=== PATIENT | female | born 1960 | race American Indian/Alaskan Native ===

== ENCOUNTER 2018-11-30 15:07 | Inpatient (IN) | payer MEDICARE ==
--- NOTE | 2018-11-30 16:08 | Cat Scan Report ---
PROCEDURE: CT HEAD/BRAIN WO CON TECHNIQUE: Computerized tomography of the head was performed without contrast material. CT DOSE LENGTH PRODUCT: 928.6 mGycm HISTORY: neuro deficits <6hrs or sx present upon awakening COMPARISONS: None . FINDINGS: Unenhanced CT of the brain was performed and demonstrates no acute intracranial hemorrhage, extra-axial fluid collection, midline shift or mass effect. The ventricles and basal cisterns are no t effaced. The mastoid air cells and middle ears appear clear. There is no evidence of acute sinusitis. IMPRESSION: No acute intracranial hemorrhage. This document is electronically signed by Rc Almaraz MD., Nov 30 2018 04:06:34 PM ET
--- NOTE | 2018-11-30 16:21 | Cat Scan Report ---
PROCEDURE: CT CERVICAL SPINE WO CON TECHNIQUE: CT of the cervical spine performed. Axial images and coronal and sagittal reformatted imag es were obtained. HISTORY: poss. CVA/found on floor/fall COMPARISON: None FINDINGS: There is no acute fracture identified. Vertebral body heights and alignment are maintained. There is C5-6 vertebral fusion, likely congenital. There is C4-5 prominent disc space narrowing with endplate spurring. There is C6-7 mild disc space na rrowing and moderate endplate spurring. There is multilevel moderate facet arthropathy, right worse t fontenot left. There is a C2-3 posterior disc bulge causing minimal central spinal stenosis. IMPRESSION: There is no acute cervical spine fracture or posttraumatic subluxation seen. Degenerative findings. This document is electronically signed by Najma Wolfe MD., Nov 30 2018 04:19:26 PM ET
--- NOTE | 2018-11-30 16:25 | Emergency Department Report ---
ED Neuro Deficit HPI - General Chief Complaint: Neuro Symptoms/Deficit Stated Complaint: SYNCOPE Time Seen by Provider: 11/30/18 16:12 Source: patient, EMS Mode of arrival: Stretcher Limitations: No Limitations - History of Present Illness Initial Comments: Patient is 58 years old female with history of hypertension and diabetes. Patient brought to the emergency room accompanied by her niece. [place] stated that she received a call from a family friend stating that he was talking to the patient at 2:00 this afternoon and all of a sudden R speech became slurred and he is unable to understand what she was saying and then she passed out. Currently patient is alert oriented 3 Oneill scale is 0. Patient stated that she had a similar episode one month ago and for which she lost some of her vision right eye. Patient stated that she followed up with her primary care physician who refer her to ophthalmology. -: Sudden Location: speech Presenting Symptoms: Present: Altered Mental Status Place: home Associated Symptoms: denies other symptoms - Related Data Home Medications: Home Medications Medication Instructions Recorded Confirmed Last Taken Acetaminophen mcg INHALATION BID 05/30/15 06/13/15 05/29/15 Advair Diskus 250-50 mcg 250 mg INHALATION DAILY 05/30/15 06/13/15 06/12/15 Albuterol Sulfate 2.5 mg INHALATION DAILY 05/30/15 06/13/15 06/12/15 Aspirin Enteric Coated TAB 81 mg PO DAILY 05/30/15 06/13/15 06/06/15 AtorvaSTATin 20 mg PO DAILY 05/30/15 06/13/15 06/12/15 Baclofen 10 mg PO BID 05/30/15 06/13/15 06/12/15 Carvedilol [Coreg] 25 mg PO BID 05/30/15 06/13/15 06/13/15 Cyclobenzaprine 10 mg PO QHS 05/30/15 06/13/15 06/12/15 Diclofenac Sodium 75 mg PO DAILY 05/30/15 06/13/15 06/12/15 Fiorinal with Codeine #3 Cap 50 mg PO Q4H 05/30/15 06/13/15 06/12/15 Fluticasone 50 mcg INNOSTRIL DAILY 05/30/15 06/13/15 06/12/15 Gabapentin 300 mg PO DAILY 05/30/15 06/13/15 06/12/15 HYDROcodone/APAP 5-325 5 - 325 mg PO PRN 05/30/15 06/13/15 06/12/15 ISOSORBIDE MONOnitrate 30 mg PO DAILY 05/30/15 06/13/15 06/12/15 Loratadine 10 mg PO DAILY 05/30/15 06/13/15 06/12/15 Losartan/Hydrochlorothiazide 100 mg PO DAILY 05/30/15 06/13/15 06/12/15 Metoclopramide 5 mg PO DAILY 05/30/15 06/13/15 06/12/15 Nitro Dur 0.4 mg SL PRN 05/30/15 06/13/15 05/30/15 Omeprazole 20 mg PO DAILY 05/30/15 06/13/15 06/12/15 Pantoprazole 40 mg PO DAILY 05/30/15 06/13/15 06/12/15 Prednisone 25 mg PO BID 05/30/15 06/13/15 06/12/15 ProAir HFA Inhaler 2 puff INHALATION BID 05/30/15 06/13/15 06/10/15 Sertraline 100 mg PO DAILY 05/30/15 06/13/15 06/12/15 Vitamin D3 2,000 unit PO DAILY 05/30/15 06/13/15 06/12/15 cloNIDine 0.1 mg PO QHS 05/30/15 06/13/15 06/13/15 hydrALAZINE 50 mg PO BID 05/30/15 06/13/15 06/12/15 metFORMIN 100 mg PO BID 05/30/15 06/13/15 06/12/15 sulfaSALAzine 500 mg PO DAILY 05/30/15 06/13/15 06/12/15 traMADol 50 mg PO TID PRN 05/30/15 06/13/15 06/12/15 Previous Rx's Medication Instructions Recorded Last Taken Type oxyCODONE /ACETAMINOPHEN [Percocet 1 tab PO Q6HR PRN #20 tablet 09/23/15 Unknown Rx 5/325] Allergies/Adverse Reactions: Allergies Allergy/AdvReac Type Severity Reaction Status Date / Time No Known Allergies Allergy Verified 09/23/15 18:43 ED Review of Systems ROS: Stated complaint: SYNCOPE Other details as noted in HPI Comment: All other systems reviewed and negative Constitutional: denies: chills, fever Respiratory: denies: cough, orthopnea, shortness of breath, SOB with exertion, SOB at rest, wheezing Cardiovascular: denies: chest pain, palpitations Gastrointestinal: denies: abdominal pain, nausea, vomiting Musculoskeletal: denies: back pain Neurological: denies: headache, weakness, numbness, paresthesias, confusion ED Past Medical Hx - Past Medical History Previous Medical History?: Yes Hx Hypertension: Yes (10+ YRS, high cholesterol) Hx Diabetes: Yes ((NIDDM '13)) Hx GERD: Yes Hx Renal Disease: Yes (stage 2) Hx Arthritis: Yes Hx Asthma: Yes Additional medical history: GOUT. HERNIATED ESOPHAGUS. FIBROMYALGIA - Surgical History Past Surgical History?: No - Social History Smoking Status: Unknown if ever smoked Substance Use Type: None - Medications Home Medications: Home Medications Medication Instructions Recorded Confirmed Last Taken Type Acetaminophen mcg INHALATION BID 05/30/15 06/13/15 05/29/15 History Advair Diskus 250-50 mcg 250 mg INHALATION DAILY 05/30/15 06/13/15 06/12/15 History Albuterol Sulfate 2.5 mg INHALATION DAILY 05/30/15 06/13/15 06/12/15 History Aspirin Enteric Coated TAB 81 mg PO DAILY 05/30/15 06/13/15 06/06/15 History AtorvaSTATin 20 mg PO DAILY 05/30/15 06/13/15 06/12/15 History Baclofen 10 mg PO BID 05/30/15 06/13/15 06/12/15 History Carvedilol [Coreg] 25 mg PO BID 05/30/15 06/13/15 06/13/15 History Cyclobenzaprine 10 mg PO QHS 05/30/15 06/13/15 06/12/15 History Diclofenac Sodium 75 mg PO DAILY 05/30/15 06/13/15 06/12/15 History Fiorinal with Codeine #3 Cap 50 mg PO Q4H 05/30/15 06/13/15 06/12/15 History Fluticasone 50 mcg INNOSTRIL DAILY 05/30/15 06/13/15 06/12/15 History Gabapentin 300 mg PO DAILY 05/30/15 06/13/15 06/12/15 History HYDROcodone/APAP 5-325 5 - 325 mg PO PRN 05/30/15 06/13/15 06/12/15 History ISOSORBIDE MONOnitrate 30 mg PO DAILY 05/30/15 06/13/15 06/12/15 History Loratadine 10 mg PO DAILY 05/30/15 06/13/15 06/12/15 History Losartan/Hydrochlorothiazide 100 mg PO DAILY 05/30/15 06/13/15 06/12/15 History Metoclopramide 5 mg PO DAILY 05/30/15 06/13/15 06/12/15 History Nitro Dur 0.4 mg SL PRN 05/30/15 06/13/15 05/30/15 History Omeprazole 20 mg PO DAILY 05/30/15 06/13/15 06/12/15 History Pantoprazole 40 mg PO DAILY 05/30/15 06/13/15 06/12/15 History Prednisone 25 mg PO BID 05/30/15 06/13/15 06/12/15 History ProAir HFA Inhaler 2 puff INHALATION BID 05/30/15 06/13/15 06/10/15 History Sertraline 100 mg PO DAILY 05/30/15 06/13/15 06/12/15 History Vitamin D3 2,000 unit PO DAILY 05/30/15 06/13/15 06/12/15 History cloNIDine 0.1 mg PO QHS 05/30/15 06/13/15 06/13/15 History hydrALAZINE 50 mg PO BID 05/30/15 06/13/15 06/12/15 History metFORMIN 100 mg PO BID 05/30/15 06/13/15 06/12/15 History sulfaSALAzine 500 mg PO DAILY 05/30/15 06/13/15 06/12/15 History traMADol 50 mg PO TID PRN 05/30/15 06/13/15 06/12/15 History oxyCODONE /ACETAMINOPHEN [Percocet 1 tab PO Q6HR PRN #20 tablet 09/23/15 Unknown Rx 5/325] ED Neuro Physical Exam - General Limitations: No Limitations General appearance: alert, in no apparent distress Suspected Stroke: Yes - Head Head exam: Present: atraumatic, normocephalic, normal inspection - Eye Eye exam: Present: normal appearance, PERRL - ENT ENT exam: Present: normal exam, normal orophraynx, mucous membranes moist - Neck Neck exam: Present: normal inspection, full ROM. Absent: tenderness, meningismus, lymphadenopathy, thyromegaly - Respiratory Respiratory exam: Present: normal lung sounds bilaterally - Cardiovascular Cardiovascular Exam: Present: regular rate, normal rhythm, normal heart sounds - GI/Abdominal GI/Abdominal exam: Present: soft, normal bowel sounds. Absent: distended, tenderness, guarding, rebound, rigid, organomegaly, mass, bruit, pulsatile mass, hernia - Extremities Exam Extremities exam: Present: normal inspection, full ROM, normal capillary refill. Absent: tenderness, pedal edema, joint swelling, calf tenderness - Back Exam Back exam: Present: normal inspection, full ROM - Neurological Exam Neurological exam: Present: alert, oriented X3, CN II-XII intact, normal gait - NIHSS Assessment Interval: Baseline 1a. Level of Consciousness: alert/keenly responsive 1b. LOC Questions: answers both correctly 1c. LOC Commands: performs tasks correctly 2. Best Gaze: normal 3. Visual: partial hemianopia 4. Facial Palsy: normal symmetrical movement 5b. Motor Arm Right: no drift 5a. Motor Arm Left: no drift 6a. Motor Leg Left: no drift 6b. Motor Leg Right: no drift 7. Limb Ataxia: absent 8. Sensory: normal 9. Best Language: no aphasia 10. Dysarthria: normal 11. Extinction/Inattention: no abnormality Total Score: 1 Stroke Severity: Minor Stroke - Psychiatric Psychiatric exam: Present: normal mood - Skin Skin exam: Present: warm, normal color ED Course Vital Signs 11/30/18 11/30/18 11/30/18 15:21 16:12 16:40 Temperature 98.6 F 98.6 F Pulse Rate 90 72 73 Respiratory 18 18 11 L Rate Blood Pressure 188/110 Blood Pressure 207/100 [Left] O2 Sat by Pulse 97 98 100 Oximetry 11/30/18 16:43 Temperature Pulse Rate Respiratory 14 Rate Blood Pressure Blood Pressure [Left] O2 Sat by Pulse Oximetry - Lab Data Result diagrams: 11/30/18 16:38 11/30/18 16:38 Lab Results 11/30/18 11/30/18 11/30/18 Range/Units 16:38 16:38 16:38 WBC 7.1 (4.5-11.0) K/mm3 RBC 4.13 (3.65-5.03) M/mm3 Hgb 12.5 (10.1-14.3) gm/dl Hct 37.5 (30.3-42.9) % MCV 91 (79-97) fl MCH 30 (28-32) pg MCHC 33 (30-34) % RDW 13.4 (13.2-15.2) % Plt Count 236 (140-440) K/mm3 Lymph % (Auto) 41.3 H (13.4-35.0) % [place] % (Auto) 7.8 H (0.0-7.3) % Eos % (Auto) 0.8 (0.0-4.3) % Baso % (Auto) 1.2 (0.0-1.8) % Lymph # 2.9 (1.2-5.4) K/mm3 [place] # 0.6 (0.0-0.8) K/mm3 Eos # 0.1 (0.0-0.4) K/mm3 Baso # 0.1 (0.0-0.1) K/mm3 Seg Neutrophils % 48.9 (40.0-70.0) % Seg Neutrophils # 3.5 (1.8-7.7) K/mm3 PT 13.8 (12.2-14.9) Sec. INR 1.00 (0.87-1.13) APTT 26.8 (24.2-36.6) Sec. Sodium 141 (137-145) mmol/L Potassium 3.7 (3.6-5.0) mmol/L Chloride 98.5 (98-107) mmol/L Carbon Dioxide 28 (22-30) mmol/L Anion Gap 18 mmol/L BUN 13 (7-17) mg/dL Creatinine 0.8 (0.7-1.2) mg/dL Estimated GFR > 60 ml/min BUN/Creatinine Ratio 16 % Glucose 144 H (65-100) mg/dL Calcium 10.2 (8.4-10.2) mg/dL Troponin T < 0.010 (0.00-0.029) ng/mL - EKG Data -: EKG Interpreted by Wy EKG shows normal: sinus rhythm Rate: normal Interpretation: no acute changes - Radiology Data Radiology results: report reviewed CT brain is negative for acute finding CT cervical spine is negative for acute finding. - Medical Decision Making Patient is 58 years old female with history of hypertension and diabetes. Patient brought to the emergency room accompanied by her niece. [place] stated that she received a call from a family friend stating that he was talking to the patient at 2:00 this afternoon and all of a sudden R speech became slurred and he is unable to understand what she was saying and then she passed out. Currently patient is alert oriented 3 Oneill scale is 0. Patient stated that she had a similar episode one month ago and for which she lost some of her vision right eye. Patient stated that she followed up with her primary care physician who refer her to ophthalmology. I discussed the patient with Dr Lugo, he agreed to admit for further management. Critical care attestation.: If time is entered above; I have spent that time in minutes in the direct care of this critically ill patient, excluding procedure time. ED Disposition Clinical Impression: TIA (transient ischemic attack) Disposition: OP ADMIT IP TO THIS HOSP Is pt being admited?: Yes Condition: Stable
[2018-11-30 17:18] LABS: Basophils # (Auto) 0.1 K/mm3 (0.0-0.1); Basophils % (Auto) 1.2 % (0.0-1.8); Eosinophils # (Auto) 0.1 K/mm3 (0.0-0.4); Eosinophils % (Auto) 0.8 % (0.0-4.3); Hematocrit 37.5 % (30.3-42.9); Hemoglobin 12.5 gm/dl (10.1-14.3); Lymphocytes # (Auto) 2.9 K/mm3 (1.2-5.4); Lymphocytes % (Auto) 41.3 % (13.4-35.0); Mean Corpuscular HGB Conc 33 % (30-34); Mean Corpuscular Volume 91 fl (79-97); Monocytes # (Auto) 0.6 K/mm3 (0.0-0.8); Monocytes % (Auto) 7.8 % (0.0-7.3); Platelet Count 236 K/mm3 (140-440); Red Blood Count 4.13 M/mm3 (3.65-5.03); Red Cell Distribution Width 13.4 % (13.2-15.2)
[2018-11-30 17:35] LABS: BUN/Creatinine Ratio 16; Blood Urea Nitrogen 13 mg/dL (7-17); Calcium 10.2 mg/dL (8.4-10.2); Hemolysis Index 3
[2018-11-30 17:39] LABS: Partial Thromboplastin Time 26.8 Sec. (24.2-36.6)
[2018-11-30] MEDS ORDERED: APRESOLINE IV ONE (19:02)
[2018-11-30] MEDS ORDERED: ZOFRAN IV ONE (19:50)
[2018-11-30] MEDS ORDERED: ZOFRAN ONE (19:52)
--- NOTE | 2018-11-30 21:29 | History and Physical Report ---
History of Present Illness Chief complaint: My speech is slurred History of present illness: 58 YO Female with HTN, DM, Obesity, GERD, OA, Asthma, Gout, Fibromyalgia presents to ED for evaluation. Pt states that she experienced a sudden onset of slurred speech, and confusion while on the telephone talking to a friend around 1400 hrs. Pt stats that she subsequently became confused and then lost consciousness and awoke lying on the floor. . Pt reports have a similar episode approximately 1 month ago during that episode- the patient reports vision loss in the right eye. EMS notified, and upon arrival the patient was found to have a neurologic deficit. A code stroke was called, and the patient transported to [facility]. Pt seen and evaluated in ED and found to have symptoms consistent with CVA. Pt admitted to telemtry and initiated on CVA protocol. No prior admission for review. All listed medication reconciled at time of admissions. Pt denies fever, chills, CP, Palpitations, NVD, Trauma, BRBPR, Loss of bowel/bladder continence, productive cough, or recent ill contacts. Neurology consulted in ED. Pt is outside therapeutic window for TPA at time of my exam. Past History Past Medical History: arthritis, diabetes, hypertension, other (gout, Fibromyalgia,) Past Surgical History: No surgical history (reviewed) Social history: single. denies: smoking, alcohol abuse, IV drug use, full code Family history: diabetes, hypertension Medications and Allergies Allergies Allergy/AdvReac Type Severity Reaction Status Date / Time No Known Allergies Allergy Verified 09/23/15 18:43 Home Medications Medication Instructions Recorded Confirmed Last Taken Type Advair Diskus 250-50 mcg 250 mg INHALATION BID 05/30/15 11/30/18 06/12/15 History Aspirin Enteric Coated TAB 81 mg PO DAILY 05/30/15 11/30/18 06/06/15 History AtorvaSTATin 20 mg PO DAILY 05/30/15 11/30/18 06/12/15 History Cyclobenzaprine 10 mg PO QHS 05/30/15 11/30/18 06/12/15 History Fiorinal with Codeine #3 Cap 50 mg PO Q4H 05/30/15 11/30/18 2 Days Ago History ~11/28/18 Fluticasone 50 mcg INNOSTRIL DAILY 05/30/15 11/30/18 06/12/15 History Loratadine 10 mg PO DAILY 05/30/15 11/30/18 1 Day Ago History ~11/29/18 Nitro Dur 0.4 mg SL PRN 05/30/15 11/30/18 1 Month Ago History ~10/31/18 Pantoprazole 40 mg PO DAILY 05/30/15 11/30/18 06/12/15 History Prednisone 25 mg PO BID 05/30/15 11/30/18 1 Day Ago History ~11/29/18 ProAir HFA Inhaler 2 puff INHALATION BID 05/30/15 11/30/18 1 Day Ago History ~11/29/18 Sertraline 100 mg PO DAILY 05/30/15 11/30/18 2 Days Ago History ~11/28/18 Vitamin D3 2,000 unit PO DAILY 05/30/15 11/30/18 2 Days Ago History ~11/28/18 metFORMIN 750 mg PO QDAY 05/30/15 11/30/18 1 Day Ago History ~11/29/18 Atenolol [Tenormin] 50 mg PO QDAY 11/30/18 11/30/18 1 Day Ago History ~11/29/18 HYDROcodone/APAP 5-325 [[place] 1 each PO Q6HR PRN 11/30/18 11/30/18 1 Day Ago History 5-325 mg TAB] ~11/29/18 Lisinopril/Hydrochlorothiazide 2 each PO QDAY 11/30/18 11/30/18 1 Day Ago History [Zestoretic 10-12.5 mg Tablet] ~11/29/18 cloNIDine [Catapres] 0.2 mg PO BID #60 tablet 12/02/18 Unknown Rx Review of Systems Constitutional: no weight loss, no weight gain, no fever, no sweats Ears, nose, mouth and throat: no deferred, no ear pain, no tinnitis, no nasal congestion, no sinus pressure Breasts: no change in shape, no swelling, no mass Cardiovascular: no orthopnea, no rapid/irregular heart beat, no lightheadedness Respiratory: no cough, no cough with sputum, no excessive sputum Gastrointestinal: no nausea, no vomiting, no diarrhea, no constipation, no change in bowel habits, no coffee ground emesis Genitourinary Female: no dysmenorrhea, no flank pain, no menorrhagia, no urgency Rectal: no pain, no incontinence, no bleeding Musculoskeletal: no neck stiffness, no neck pain, no shooting arm pain, no low back pain Integumentary: no rash, no jaundice, no boils Neurological: weakness, syncope, change in speech, motor disturbance, no numbness, no seizures Psychiatric: no anxiety, no sleep disturbances, no insomnia, no change in appetite Endocrine: no cold intolerance, no heat intolerance, no excessive thirst, no polydipsia, no polyuria, no excessive sweating Hematologic/Lymphatic: no easy bruising, no easy bleeding, no lymphadenopathy Allergic/Immunologic: no urticaria, no anaphylaxis Exam - Constitutional Vitals: Temp Pulse Resp BP Pulse Ox 98 F 81 10 L 150/82 100 11/30/18 19:26 11/30/18 19:45 11/30/18 19:45 11/30/18 20:30 11/30/18 20:30 General appearance: Present: mild distress - EENT Eyes: Present: PERRL ENT: hearing intact, clear oral mucosa - Neck Neck: Present: supple, normal ROM - Respiratory Respiratory effort: normal Respiratory: bilateral: CTA - Cardiovascular Heart Sounds: Present: S1 & S2. Absent: rub, click - Extremities Extremities: pulses symmetrical, No edema Peripheral Pulses: within normal limits - Abdominal General gastrointestinal: Present: soft, non-tender, non-distended, normal bowel sounds Female genitourinary: Present: normal - Integumentary Integumentary: Present: clear, warm, dry - Musculoskeletal Musculoskeletal: gait normal, strength equal bilaterally - Psychiatric Psychiatric: appropriate mood/affect, intact judgment & insight - Neurologic Neurologic: CNII-XII intact, moves all extremities Results - Labs CBC & Chem 7: 11/30/18 16:38 11/30/18 16:38 Labs: Abnormal lab results 11/30/18 11/30/18 Range/Units 16:38 16:38 Lymph % (Auto) 41.3 H (13.4-35.0) % [place] % (Auto) 7.8 H (0.0-7.3) % Glucose 144 H (65-100) mg/dL Assessment and Plan - Patient Problems (1) CVA (cerebral vascular accident) Status: Acute Qualifiers: Laterality of affected vessel: unspecified Plan to address problem: CVA Protocol: Admit to telemetry, Echo, CT head, MRI Brain, MRA Brain, Antiplatelet therapy, Lipid panel, neuro check, seizure precautions. Statin therapy, PT/OT/Speech Therapy (2) HTN (hypertension) Status: Acute Qualifiers: Hypertension type: essential hypertension Qualified Code(s): I10 - Essential (primary) hypertension Plan to address problem: monitor bp q shift, permissive hypertension overnigh, continue medical management. (3) Diabetes Status: Acute Plan to address problem: ADA diet, insulin sliding scale, accu check, hypoglycemia protocol (4) GERD (gastroesophageal reflux disease) Status: Acute Qualifiers: Esophagitis presence: without esophagitis Qualified Code(s): K21.9 - Gastro-esophageal reflux disease without esophagitis Plan to address problem: PPI therapy, (5) DVT prophylaxis Status: Acute Plan to address problem: SCD to BLE while in bed,
[2018-11-30] MEDS ORDERED: ZOFRAN IV PRN (21:30)
[2018-11-30] MEDS ORDERED: TYLENOL PO PRN (21:30)
[2018-11-30] MEDS ORDERED: REGLAN PO PRN (21:30)
[2018-11-30] MEDS ORDERED: DULCOLAX PR PRN (21:30)
[2018-11-30] MEDS ORDERED: MILK OF MAGNESIA PO PRN (21:30)
[2018-11-30] MEDS ORDERED: SODIUM CHLORIDE FLUSH SYRINGE 10 ML IV PRN (21:30)
[2018-11-30] MEDS ORDERED: PHENERGAN PR PRN (21:30)
[2018-11-30] MEDS ORDERED: APRESOLINE IV PRN (21:32)
[2018-11-30] MEDS: NORCO 5/325 PO PRN (23:25)
[2018-12-01 05:49] LABS: Chol/HDL Ratio 3.48 %
--- NOTE | 2018-12-01 08:29 | Progress Note ---
Subjective Date of service: 12/01/18 Interval history: patient admitted through the ED on multiple meds that can produce sedation and slurred speech actually suspect hypertensive crisis plan MRI and EEG the CT was reviewed by me and is normal Objective - Vital Sign Vital Signs - 12hr 11/30/18 11/30/18 11/30/18 20:30 20:45 21:00 Temperature Pulse Rate 78 75 Respiratory 13 11 L Rate Blood Pressure 150/82 150/82 173/84 O2 Sat by Pulse 100 100 100 Oximetry 11/30/18 11/30/18 11/30/18 21:30 21:51 22:01 Temperature Pulse Rate 80 97 H 85 Respiratory 14 12 Rate Blood Pressure 161/82 161/82 161/82 O2 Sat by Pulse 99 99 99 Oximetry 11/30/18 11/30/18 11/30/18 22:11 22:24 22:27 Temperature 98.5 F Pulse Rate 83 96 H 86 Respiratory 11 L 18 Rate Blood Pressure 161/82 151/89 O2 Sat by Pulse 100 97 Oximetry 12/01/18 03:21 Temperature 98.0 F Pulse Rate 76 Respiratory 16 Rate Blood Pressure 160/90 O2 Sat by Pulse 99 Oximetry - Laboratory Findings CBC and BMP: 11/30/18 16:38 11/30/18 16:38 Abnormal Lab Findings: Abnormal Labs 11/30/18 11/30/18 16:38 16:38 Lymph % (Auto) 41.3 H [place] % (Auto) 7.8 H Glucose 144 H
[2018-12-01] MEDS ORDERED: ATIVAN IV NR (08:30)
--- NOTE | 2018-12-01 08:30 | Progress Note ---
Assessment and Plan Assessment and plan: --Acute CVA ; not a candidate for TPA Aspirin statin. Neuro checks Neuro workup with MRI brain MRA and carotid Doppler PTOT ST, rehabilitation Follow due to workup, neurology evaluation --Hypertension; moderate controlled Continue current antihypertensives, permissive hypertension per protocol Closely monitor --Type 2 diabetes mellitus; Accu-Chek sliding scale coverage and ADA diet Insulin as needed --Gastroesophageal reflux disease; Protonix --Dyslipidemia; statin and low cholesterol diet --DVT prophylaxis; Lovenox Monitor closely and adjust management as needed Neurology evaluation recommendations noted Possible discharge in 1-2 days if stable History Interval history: Patient seen and examined medical records reviewed Patient feels slightly better no new complaints Neuro workup is in progress Vital signs noted Hospitalist Physical - Constitutional Vitals: Temp Pulse Resp BP Pulse Ox 98.0 F 76 16 160/90 99 12/01/18 03:21 12/01/18 03:21 12/01/18 03:21 12/01/18 03:21 12/01/18 03:21 General appearance: Present: no acute distress, well-nourished - EENT Eyes: Present: PERRL, EOM intact - Neck Neck: Present: supple, normal ROM - Respiratory Respiratory effort: normal Respiratory: bilateral: diminished, negative: rales, rhonchi, wheezing - Cardiovascular Rhythm: regular Heart Sounds: Present: S1 & S2 - Extremities Extremities: no ischemia, No edema - Abdominal General gastrointestinal: soft, non-tender, non-distended, normal bowel sounds - Integumentary Integumentary: Present: clear, warm - Psychiatric Psychiatric: appropriate mood/affect, cooperative - Neurologic Neurologic: CNII-XII intact, moves all extremities Results - Labs CBC & Chem 7: 11/30/18 16:38 11/30/18 16:38 Labs: Laboratory Last Values WBC 7.1 K/mm3 (4.5-11.0) 11/30/18 16:38 RBC 4.13 M/mm3 (3.65-5.03) 11/30/18 16:38 Hgb 12.5 gm/dl (10.1-14.3) 11/30/18 16:38 Hct 37.5 % (30.3-42.9) 11/30/18 16:38 MCV 91 fl (79-97) 11/30/18 16:38 MCH 30 pg (28-32) 11/30/18 16:38 MCHC 33 % (30-34) 11/30/18 16:38 RDW 13.4 % (13.2-15.2) 11/30/18 16:38 Plt Count 236 K/mm3 (140-440) 11/30/18 16:38 Lymph % (Auto) 41.3 % (13.4-35.0) H 11/30/18 16:38 Crisp % (Auto) 7.8 % (0.0-7.3) H 11/30/18 16:38 Eos % (Auto) 0.8 % (0.0-4.3) 11/30/18 16:38 Baso % (Auto) 1.2 % (0.0-1.8) 11/30/18 16:38 Lymph # 2.9 K/mm3 (1.2-5.4) 11/30/18 16:38 Crisp # 0.6 K/mm3 (0.0-0.8) 11/30/18 16:38 Eos # 0.1 K/mm3 (0.0-0.4) 11/30/18 16:38 Baso # 0.1 K/mm3 (0.0-0.1) 11/30/18 16:38 Seg Neutrophils % 48.9 % (40.0-70.0) 11/30/18 16:38 Seg Neutrophils # 3.5 K/mm3 (1.8-7.7) 11/30/18 16:38 PT 13.8 Sec. (12.2-14.9) 11/30/18 16:38 INR 1.00 (0.87-1.13) 11/30/18 16:38 APTT 26.8 Sec. (24.2-36.6) 11/30/18 16:38 15.3 Sec. (15.1-19.6) 11/30/18 16:38 Sodium 141 mmol/L (137-145) 11/30/18 16:38 Potassium 3.7 mmol/L (3.6-5.0) 11/30/18 16:38 Chloride 98.5 mmol/L (98-107) 11/30/18 16:38 Carbon Dioxide 28 mmol/L (22-30) 11/30/18 16:38 18 mmol/L 05/20/19 16:38 BUN 13 mg/dL (7-17) 11/30/18 16:38 0.8 mg/dL (0.7-1.2) 11/30/18 16:38 Estimated GFR > 60 ml/min 11/30/18 16:38 16 % 11/30/18 16:38 Glucose 144 mg/dL (65-100) H 11/30/18 16:38 Calcium 10.2 mg/dL (8.4-10.2) 11/30/18 16:38 < 0.010 ng/mL (0.00-0.029) 11/30/18 16:38 Triglycerides 130 mg/dL (2-149) 12/01/18 04:47 Cholesterol 143 mg/dL (50-199) 12/01/18 04:47 92 mg/dL (50-130) 12/01/18 04:47 41 mg/dL (40-59) 12/01/18 04:47 3.48 % 12/01/18 04:47 Active Medications - Current Medications Current Medications: Generic Name Dose Route Start Last Admin Trade Name Freq PRN Reason Stop Dose Admin Acetaminophen 650 mg 11/30/18 21:30 Tylenol PO Q4H PRN Pain, Mild (1-3) Acetaminophen/Hydrocodone Bitart 1 each 11/30/18 22:55 11/30/18 23:25 Baird 5/325 PO 1 each Q6H PRN Administration Pain (4-6) Aspirin 81 mg 12/01/18 10:00 Halfprin Ec PO DAILY [facility] Atenolol 50 mg 12/01/18 10:00 Tenormin PO QDAY [facility] Atorvastatin Calcium 20 mg 12/01/18 10:00 Lipitor PO DAILY [facility] Bisacodyl 10 mg 11/30/18 21:30 Dulcolax RI QDAY PRN Constipation Cholecalciferol 2,000 unit 12/01/18 10:00 Vitamin D3 PO DAILY [facility] Enoxaparin Sodium 40 mg 12/01/18 22:00 Lovenox SUB-Q QDAY@2200 [facility] Hydralazine HCl 10 mg 11/30/18 21:32 Apresoline IV Q6HR PRN HTN SBP>185 Hydrochlorothiazide 25 mg 12/01/18 10:00 Hctz PO QDAY REZA Lisinopril 20 mg 12/01/18 10:00 Zestril PO QDAY REZA Lorazepam 2 mg 12/01/18 08:30 Ativan IV ONLINE [employer] NR Lorazepam 2 mg 12/01/18 08:24 Ativan IV 12/01/18 08:25 ONCE ONE Magnesium Hydroxide 30 ml 11/30/18 21:30 Milk Of Magnesia PO Q4H PRN Constipation Metformin HCl 750 mg 12/01/18 08:00 Glucophage PO QDDIAB REZA Metoclopramide HCl 10 mg 11/30/18 21:30 Reglan PO Q6H PRN Nausea And Vomiting Ondansetron HCl 4 mg 11/30/18 21:30 Zofran IV Q8H PRN Nausea And Vomiting Pantoprazole Sodium 40 mg 12/01/18 10:00 Protonix PO DAILY [facility] Promethazine HCl 25 mg 11/30/18 21:30 Phenergan RI Q6H PRN Nausea And Vomiting Sertraline HCl 100 mg 12/01/18 10:00 Zoloft PO DAILY [facility] Sodium Chloride 10 ml 11/30/18 21:30 Sodium Chloride Flush Syringe 10 Ml IV PRN PRN LINE FLUSH
[2018-12-01] MEDS ORDERED: ATIVAN IV ONE (09:00)
[2018-12-01] MEDS: GLUCOPHAGE PO SCH (10:41)
[2018-12-01] MEDS: HALFPRIN EC PO SCH (10:41)
[2018-12-01] MEDS: ZOLOFT PO SCH (10:41)
[2018-12-01] MEDS: HCTZ PO SCH (10:41)
[2018-12-01] MEDS: ZESTRIL PO SCH (10:41)
[2018-12-01] MEDS: VITAMIN D3 PO SCH (10:42)
[2018-12-01] MEDS: PROTONIX PO SCH (10:42)
[2018-12-01] MEDS: TENORMIN PO SCH (11:15)
--- NOTE | 2018-12-01 13:08 | Vascular Lab Report ---
PROCEDURE: VL CAROTID DUPLEX BILAT TECHNIQUE: Carotid ultrasound. Degree of carotid stenosis calculated by indirect methods via the peak systolic velocities of the ICA and CCA and reference with the society of Radiologist and Ultrasound consensus conference radiology 2003. HISTORY: stroke COMPARISONS: None currently available. FINDINGS: Note: Measurement of carotid stenosis is based on flow velocity values that correlate with the [place] Symptomatic Carotid Endarterectomy Trial (NASCET) based stenosis criteria using the internal carotid artery diameter as the denominator for stenosis calculation. RIGHT CCA, ICA, and ECA (cm/s): 122, 119, and 98. Ratio = 0.98. LEFT CCA, ICA, and ECA (cm/s): 126, 151, and 82. Ratio = 1.19. There is plaque in both carotids. Both vertebral arteries demonstrate antegrade flow. Normal spectral rhythm is identified. IMPRESSION: * 50-79% stenosis in the left ICA based on velocity. Lower end of the range based on color Doppler. * 16-49% stenosis in the right proximal ICA. This document is electronically signed by Ambrose Hansen MD., Dec 01 2018 01:06:39 PM ET
--- NOTE | 2018-12-01 14:32 | Magnetic Resonance Report ---
MRI BRAIN WITHOUT CONTRAST: 11/30/18 21:30:00 CLINICAL: Stroke. TECHNIQUE: Axial diffusion, T1, T2, gradient echo T2*, coronal and axial FLAIR and sagittal T1 sequences on a 1.5 Dai magnet. Ativan was administered by a nurse for sedation prior to the examination. FINDINGS: Mild motion on a few sequences. The ventricles and sulci are normal for age. No restricted diffusion. A few bilateral nonspecific multifocal white matter hyperintensities of the frontal lobes on T2 and FLAIR. No mass or mass effect. No hemorrhage, edema or extra-axial collection. Normal pituitary and optic chiasm. The brainstem and cerebellum are normal. Intact vascular flow voids. Normal sinuses. The orbits, and soft tissues are normal. Normal calvarium and skull base. IMPRESSION: Negative study. No evidence of acute/subacute infarct or hemorrhage.
--- NOTE | 2018-12-01 14:36 | Magnetic Resonance Report ---
MRA HEAD WITHOUT CONTRAST: 12/01/18 CLINICAL: Stroke. TECHNIQUE: Axial 3-D [id number] MR angiography of the [place] with review of axial source images. FINDINGS: Intact [place] with no aneurysm, stenosis or occlusion. Symmetric blood flow in the anterior, middle and posterior cerebral arteries. Normal basilar and vertebral arteries. The left vertebral artery is dominant. IMPRESSION: Normal study.
--- NOTE | 2018-12-01 16:21 | Progress Note ---
Subjective Date of service: 12/01/18 Interval history: spoke to patient and went over my opinions of HTN crises patient is better and displayed no further signs of TIA Objective - Vital Sign Vital Signs - 12hr 12/01/18 08:00 Pulse Rate 72 - Laboratory Findings CBC and BMP: 11/30/18 16:38 11/30/18 16:38 Abnormal Lab Findings: Abnormal Labs 11/30/18 11/30/18 16:38 16:38 Lymph % (Auto) 41.3 H [place] % (Auto) 7.8 H Glucose 144 H
[2018-12-01] MEDS: NORCO 5/325 PO PRN (17:41)
[2018-12-01] MEDS ORDERED: MIRALAX 3350 PO PRN (19:19)
[2018-12-01] MEDS ORDERED: LOVENOX SUB-Q SCH (22:00)
[2018-12-02] MEDS: GLUCOPHAGE PO SCH (12:29)
[2018-12-02] MEDS: ZOLOFT PO SCH (12:31)
[2018-12-02] MEDS: ZESTRIL PO SCH (12:31)
[2018-12-02] MEDS: VITAMIN D3 PO SCH (12:31)
[2018-12-02] MEDS: HCTZ PO SCH (12:31)
[2018-12-02] MEDS: PROTONIX PO SCH (12:31)
[2018-12-02] MEDS: HALFPRIN EC PO SCH (12:31)
[2018-12-02] MEDS: TENORMIN PO SCH (12:32)
--- NOTE | 2018-12-02 14:21 | Discharge Summary ---
Providers - Providers Date of Admission: 11/30/18 21:30 Date of discharge: 12/02/18 Attending physician: NOELLE TERRY 11/30/18 Consult to Physician [CONS] Routine Comment: Consulting Provider: FRANCISCO JIMENEZ Physician Instructions: Reason For Exam: cva 11/30/18 21:30 Occupational Therapy Evaluate and Treat [CONS] Routine Comment: Reason For Exam: Neuro deficits Physical Therapy Evaluation and Treat [CONS] Routine Comment: Reason For Exam: Neuro deficits Speech Therapy Evaluation and Treat [CONS] Routine Reason For Exam: swallow eval Hospitalization Reason for admission: Slurred speech Condition: Stable Pertinent studies: CT head:normal CT cervical spine: degenerative changes MRI: normal MRA; no abnormality ECHO :FF 60-65% Carotid doppler:50-79% stenosis Lt carotid Hospital course: 58 YO Female with HTN, DM, Obesity, GERD, OA, Asthma, Gout, Fibromyalgia presents to ED for evaluation. Pt states that she experienced a sudden onset of slurred speech, and confusion while on the telephone talking to a friend around 1400 hrs Not a candidate for TPA,out side the window for TPA. admitted and managed symptomatically.Had extensive Neuro work negative for acute CVA,patients symptoms improved.Possible TIA Lt Carotid stenosis ,continue aspirin and statin,. Symptoms resolved..Todat patient comfortable,no new complaints, vitals stable physicl exam unremarkable. --Acute CVA ; not a candidate for TPA Aspirin statin. Neuro symptoms resolved Neuro workup is negative, CVA ruled out. --TIA: workup consistent with TIA Follow neurology on discharge --Lt carotid stenosis: aspirin and statin,advised to see private vascular --Hypertension; moderate controlled Continue current antihypertensives, permissive hypertension per protocol Closely monitor --Type 2 diabetes mellitus; Accu-Chek sliding scale coverage and ADA diet Insulin as needed --Gastroesophageal reflux disease; Protonix --Dyslipidemia; statin and low cholesterol diet --DVT prophylaxis; Lovenox Monitor closely and adjust management as needed Neurology evaluation recommendations noted Possible discharge in 1-2 days if stable Disposition: DC- TO HOME OR SELFCARE Time spent for discharge: 32 min Core Measure Documentation - Palliative Care Palliative Care/ Comfort Measures: Not Applicable - Core Measures Any of the following diagnoses?: none Exam - Constitutional Vitals: Temp Pulse Resp BP Pulse Ox 98.4 F 74 16 178/103 99 12/02/18 13:27 12/02/18 13:27 12/02/18 13:27 12/02/18 13:27 12/02/18 13:27 General appearance: Present: no acute distress, well-nourished - EENT Eyes: Present: PERRL, EOM intact - Neck Neck: Present: supple, normal ROM - Respiratory Respiratory effort: normal Respiratory: bilateral: diminished, negative: rales, rhonchi, wheezing - Cardiovascular Rhythm: regular Heart Sounds: Present: S1 & S2 - Extremities Extremities: no ischemia, No edema - Abdominal General gastrointestinal: Present: soft, non-tender, non-distended, normal bowel sounds - Integumentary Integumentary: Present: clear, warm - Musculoskeletal Musculoskeletal: strength equal bilaterally - Psychiatric Psychiatric: appropriate mood/affect, cooperative - Neurologic Neurologic: CNII-XII intact, moves all extremities Plan Activity: advance as tolerated Diet: diabetic Additional Instructions: Advised to follow private neurologist as scheduled. No New prescriptions Follow up with: HOA ARIAS [Other] - 3-5 Days FRANCISCO JIMENEZ MD [Staff Physician] - 7 Days Forms: Accompanied Note Prescriptions: cloNIDine [Catapres] 0.2 mg PO BID #60 tablet
[2018-12-02] MEDS ORDERED: CATAPRES PO ONE (16:00)
[2018-12-02 17:25] VITALS: BP 157/101
== END 2018-12-02 20:07 | disposition home or self-care (01) | DRG 69 ==
LOC: ED 15:07 → 4A 21:30
PROVIDERS: ADMIT Internal Medicine; ATTEND Internal Medicine
DX: G45.9 Transient cerebral ischemic attack, unspecified (principal); K21.9 Gastro-esophageal reflux disease without esophagitis; J45.909 Unspecified asthma, uncomplicated; M10.9 Gout, unspecified; E78.00 Pure hypercholesterolemia, unspecified; E11.22 Type 2 diabetes mellitus with diabetic chronic kidney disease; N18.2 Chronic kidney disease, stage 2 (mild); I12.9 Hypertensive chronic kidney disease with stage 1 through stage 4 chronic kidney disease, or unspecified chronic kidney disease; E66.9 Obesity, unspecified; Z68.21 Body mass index [BMI] 21.0-21.9, adult; Z83.3 Family history of diabetes mellitus; Z82.49 Family history of ischemic heart disease and other diseases of the circulatory system; Z79.899 Other long term (current) drug therapy; Z79.82 Long term (current) use of aspirin; Z79.84 Long term (current) use of oral hypoglycemic drugs
CPT/HCPCS: 36415; 70450; 70544; 70551; 72125; 80048; 80061; 84484; 85025; 85610; 85670; 85730; 93005; 93010; 93306; 93880; 96374; 96375; G0378; A9270-GY; J0360; J1650; J2060; J2405

== ENCOUNTER 2019-04-26 14:08 | Inpatient (IN) | payer MEDICARE ==
[2019-04-26] MEDS ORDERED: NORMODYNE IV ONE (14:48)
--- NOTE | 2019-04-26 14:53 | Emergency Department Report ---
ED Chest Pain HPI - General Chief Complaint: Chest Pain Stated Complaint: N/V/CHEST PAIN Time Seen by Provider: 04/26/19 14:47 Source: patient, EMS Mode of arrival: Stretcher Limitations: No Limitations - History of Present Illness Initial Comments: Patient is 58 years old female with history of hypertension. Patient presented to the ER via EMS complaining of left-sided chest pain, pressure in nature with radiation to the left arm. Patient stated that pain started last night. While in triage patient started to have seizure. Seizure aborted without medication. Patient is alert, oriented 3. Patient is complaining of headache and chest pain. Patient denied any weakness, numbness or tingling sensation. Blood pressure is 225/124. MD Complaint: chest pain -: Last night Onset: during rest Pain Location: left chest Pain Radiation: LUE Severity: severe Severity scale (0 -10): 8 Quality: tightness, heaviness Consistency: constant - Related Data Home Medications Medication Instructions Recorded Confirmed Last Taken Advair Diskus 250-50 mcg 250 mg INHALATION BID 05/30/15 04/26/19 04/26/19 Aspirin Enteric Coated TAB 81 mg PO DAILY 05/30/15 04/26/19 04/26/19 AtorvaSTATin 20 mg PO DAILY 05/30/15 04/26/19 04/26/19 Fluticasone 50 mcg INNOSTRIL DAILY 05/30/15 04/26/19 04/26/19 Loratadine 10 mg PO DAILY 05/30/15 04/26/19 04/26/19 Nitro Dur 0.4 mg SL PRN 05/30/15 04/26/19 04/26/19 Pantoprazole 40 mg PO DAILY 05/30/15 04/26/19 04/26/19 Prednisone 25 mg PO BID 05/30/15 04/26/19 04/26/19 ProAir HFA Inhaler 2 puff INHALATION BID 05/30/15 04/26/19 04/26/19 metFORMIN 750 mg PO QDAY 05/30/15 04/26/19 04/26/19 Atenolol [Tenormin] 50 mg PO QDAY 11/30/18 04/26/19 04/26/19 Lisinopril/Hydrochlorothiazide 2 each PO QDAY 11/30/18 04/26/19 04/26/19 [Zestoretic 10-12.5 mg Tablet] Previous Rx's Medication Instructions Recorded Last Taken Type cloNIDine [Catapres] 0.2 mg PO BID #60 tablet 12/02/18 04/26/19 Rx Allergies Allergy/AdvReac Type Severity Reaction Status Date / Time No Known Allergies Allergy Verified 09/23/15 18:43 Heart Score - HEART Score History: Moderately suspicious EKG: Non-specific Age: 45-65 Risk factors: 1-2 risk factors Troponin: < normal limit HEART Score: 4 - Critical Actions Critical Actions: 4-6 pts:12-16.6% risk of adverse cardiac event. Should be admitted ED Review of Systems ROS: Stated complaint: N/V/CHEST PAIN Other details as noted in HPI Comment: All other systems reviewed and negative Constitutional: denies: chills, fever Respiratory: denies: cough, shortness of breath, SOB with exertion, SOB at rest Gastrointestinal: denies: abdominal pain, nausea, vomiting, diarrhea, constipation, hematemesis, melena Musculoskeletal: denies: back pain Neurological: headache. denies: weakness, numbness, paresthesias, confusion Psychiatric: denies: anxiety, depression, auditory hallucinations, visual goff ucinations, homicidal thoughts ED Past Medical Hx - Past Medical History Previous Medical History?: Yes Hx Hypertension: Yes (10+ YRS, high cholesterol) Hx Diabetes: Yes ((NIDDM '13)) Hx GERD: Yes Hx Renal Disease: Yes (stage 2) Hx Arthritis: Yes Hx Asthma: Yes Additional medical history: GOUT. HERNIATED ESOPHAGUS. FIBROMYALGIA - Social History Smoking Status: Never Smoker - Medications Home Medications: Home Medications Medication Instructions Recorded Confirmed Last Taken Type Advair Diskus 250-50 mcg 250 mg INHALATION BID 05/30/15 04/26/19 04/26/19 History Aspirin Enteric Coated TAB 81 mg PO DAILY 05/30/15 04/26/19 04/26/19 History AtorvaSTATin 20 mg PO DAILY 05/30/15 04/26/19 04/26/19 History Fluticasone 50 mcg INNOSTRIL DAILY 05/30/15 04/26/19 04/26/19 History Loratadine 10 mg PO DAILY 05/30/15 04/26/19 04/26/19 History Nitro Dur 0.4 mg SL PRN 05/30/15 04/26/19 04/26/19 History Pantoprazole 40 mg PO DAILY 05/30/15 04/26/19 04/26/19 History Prednisone 25 mg PO BID 05/30/15 04/26/19 04/26/19 History ProAir HFA Inhaler 2 puff INHALATION BID 05/30/15 04/26/19 04/26/19 History metFORMIN 750 mg PO QDAY 05/30/15 04/26/19 04/26/19 History Atenolol [Tenormin] 50 mg PO QDAY 11/30/18 04/26/19 04/26/19 History Lisinopril/Hydrochlorothiazide 2 each PO QDAY 11/30/18 04/26/19 04/26/19 History [Zestoretic 10-12.5 mg Tablet] cloNIDine [Catapres] 0.2 mg PO BID #60 tablet 12/02/18 04/26/19 04/26/19 Rx ED Physical Exam - General Limitations: No Limitations General appearance: alert, anxious - Head Head exam: Present: atraumatic, normocephalic, normal inspection - Eye Eye exam: Present: normal appearance, PERRL - ENT ENT exam: Present: normal exam, normal orophraynx, mucous membranes moist - Neck Neck exam: Present: normal inspection, full ROM. Absent: tenderness, mening ismus, lymphadenopathy, thyromegaly - Respiratory Respiratory exam: Present: normal lung sounds bilaterally - Cardiovascular Cardiovascular Exam: Present: regular rate, normal rhythm, normal heart sounds - GI/Abdominal GI/Abdominal exam: Present: soft, normal bowel sounds. Absent: distended, tenderness, guarding, rebound, rigid, diminished bowel sounds, organomegaly, mass, bruit, pulsatile mass, hernia - Extremities Exam Extremities exam: Present: normal inspection, full ROM, normal capillary refill - Back Exam Back exam: Present: normal inspection, full ROM. Absent: CVA tenderness (R), CVA tenderness (L) - Neurological Exam Neurological exam: Present: alert, oriented X3, CN II-XII intact - Psychiatric Psychiatric exam: Present: normal mood - Skin Skin exam: Present: warm, intact, normal color ED Course Vital Signs 04/26/19 14:54 Pulse Rate 99 H Blood Pressure 220/116 ED Medical Decision Making - Lab Data Result diagrams: 04/26/19 14:51 04/26/19 14:51 - EKG Data -: EKG Interpreted by Me EKG shows normal: sinus rhythm Rate: normal - EKG Data Interpretation: no acute changes - Radiology Data Radiology results: report reviewed - Medical Decision Making Patient is 58 years old female with history of hypertension. Patient presented to the ER via EMS complaining of left-sided chest pain, pressure in nature with radiation to the left arm. Patient stated that pain started last night. While in triage patient started to have seizure. Seizure aborted without medication. Patient is alert, oriented 3. Patient is complaining of headache and chest pain. Patient denied any weakness, numbness or tingling sensation. Blood pressure is 225/124. No seizure activity is observed in the ER. EKG is unremarkable. CT brain is negative for acute finding. Labs reviewed and is unremarkable including a negative troponin. He had chest, CT abdomen and pelvis with IV contrast is pending. I discussed the patient was Dr. Caraballo, he agreed to admit to medical service. Critical care attestation.: If time is entered above; I have spent that time in minutes in the direct care of this critically ill patient, excluding procedure time. ED Disposition Clinical Impression: Chest pain, Hypertensive emergency, Seizure Disposition: OP ADMIT IP TO THIS HOSP Is pt being admited?: Yes Condition: Stable Instructions: Chest Pain (ED), Hypertension (ED)
[2019-04-26 15:36] LABS: Basophils % (Auto) 0.7 % (0.0-1.8); Eosinophils # (Auto) 0.1 K/mm3 (0.0-0.4); Eosinophils % (Auto) 1.1 % (0.0-4.3); Hematocrit 38.7 % (30.3-42.9); Hemoglobin 12.6 gm/dl (10.1-14.3); Lymphocytes # (Auto) 2.2 K/mm3 (1.2-5.4); Lymphocytes % (Auto) 40.1 % (13.4-35.0); Mean Corpuscular HGB Conc 33 % (30-34); Mean Corpuscular Volume 90 fl (79-97); Monocytes # (Auto) 0.3 K/mm3 (0.0-0.8); Platelet Count 241 K/mm3 (140-440); Red Cell Distribution Width 13.7 % (13.2-15.2)
[2019-04-26 15:39] LABS: BUN/Creatinine Ratio 14; Blood Urea Nitrogen 11 mg/dL (7-17); Hemolysis Index 9
[2019-04-26] MEDS ORDERED: HumuLIN R IV ONE (16:01)
[2019-04-26] MEDS ORDERED: ZOFRAN ONE ×2 (16:06→21:14)
[2019-04-26] MEDS ORDERED: ZOFRAN IV ONE ×2 (17:23→21:09)
--- NOTE | 2019-04-26 17:40 | Cat Scan Report ---
CT head/brain wo con INDICATION / CLINICAL INFORMATION: 58 years Female; headache, high blood pressure. TECHNIQUE: Routine CT head without contrast. All CT scans at this location are performed using CT dos e reduction for ALARA by means of automated exposure control. COMPARISON: The study is compared to the previous CT of 11/30/2018. FINDINGS: BRAIN / INTRACRANIAL CONTENTS: The brain demonstrate appropriate attenuation for age without signific ant interval change at. The ventricular system remains appropriate in size and configuration. There i s no clear CT evidence of acute intracranial hemorrhage or significant mass effect. ORBITS: No significant abnormality of visualized orbits. SINUSES / MASTOIDS: No significant abnormality the visualized paranasal sinuses or mastoid air cells. CRANIOCERVICAL JUNCTION: No significant abnormality. ADDITIONAL FINDINGS: None. IMPRESSION: 1. There is no CT evidence of acute intracranial process. Signer Name: Darrius Morley MD Signed: 04/26/2019 5:36 PM Workstation Name: [id number]
[2019-04-26] MEDS ORDERED: MORPHINE IV ONE (21:08)
[2019-04-26] MEDS ORDERED: NACL 0.9% 500 ML 500 ML IV ONE (21:09)
[2019-04-26] MEDS ORDERED: MORPHINE ONE (21:14)
[2019-04-26] MEDS ORDERED: NACL 0.9% 500 ML 500 ML ONE (21:15)
--- NOTE | 2019-04-26 21:26 | Cat Scan Report ---
CT angio abdomen pelvis INDICATION: chest pain, rule out aortic dissection. TECHNIQUE: All CT scans at this location are performed using CT dose reduction for ALARA by means of automated e xposure control. Precontrast localizer images were obtained, followed by axial and 3-dimensional reconstruction images , performed at an independent workstation by the nuclear medicine technologist after IV bolus contrast injection. COMPARISON: None available. FINDINGS: Distal thoracic and abdominal aorta are unremarkable, as are the iliac and proximal femoral arteries. No evidence of dissection. Celiac axis, SMA and bilateral renal arteries are also negative. I cannot identify the origin of the inferior mesenteric artery. Hepatic steatosis, with no focal liver lesions. Gallbladder, spleen, pancreas, kidneys and adrenals a re negative. Calcified fibroids in the uterus. No free fluid or inflammation. Urinary bladder is unremarkable. Nor mal appendix. IMPRESSION: 1. Hepatic steatosis. 2. Calcified uterine fibroids. 3. No evidence of aortic dissection or other acute abnormality. Signer Name: Horace Staley MD Signed: 04/26/2019 9:21 PM Workstation Name: [id number]
[2019-04-26] MEDS ORDERED: NITROGLYCERIN 0.4 MG SL PRN (21:56)
[2019-04-26] MEDS ORDERED: NON-FORMULARY (Atorvastatin 20 MG) PO SCH (22:00)
[2019-04-26] MEDS ORDERED: PREDNISONE 25 MG PO SCH (22:00)
[2019-04-26] MEDS ORDERED: ADVAIR INHALATION SCH (22:00)
[2019-04-26] MEDS ORDERED: LISINOPRIL PO SCH (22:00)
[2019-04-26] MEDS ORDERED: NON-FORMULARY (Loratadine 10 MG) PO SCH (22:00)
[2019-04-26] MEDS ORDERED: NON-FORMULARY (Proair Hfa Inhaler 2 PUFF) INHALATION SCH (22:00)
[2019-04-26] MEDS ORDERED: NON-FORMULARY (Metformin 500 MG) PO SCH (22:00)
[2019-04-26] MEDS ORDERED: HYDROCHLOROTHIAZIDE PO SCH (22:00)
[2019-04-26] MEDS ORDERED: NON-FORMULARY (Pantoprazole 40 MG) PO SCH (22:00)
[2019-04-26] MEDS ORDERED: ASPIRIN ENTERIC COATED 81 MG PO SCH (22:00)
[2019-04-26] MEDS ORDERED: FLUTICASONE 50 MCG InNostril SCH (22:00)
[2019-04-26] MEDS ORDERED: APRESOLINE IV PRN (22:06)
[2019-04-26] MEDS ORDERED: NITROSTAT SL PRN (22:10)
--- NOTE | 2019-04-26 22:23 | History and Physical Report ---
History of Present Illness Date of examination: 04/26/19 Date of admission: 04/26/19 18:10 Chief complaint: Chest pain since a.m. Seizures while in the triage History of present illness: 58-year-old female with history of hypertension comes to the emergency room for retrosternal chest pain with radiation to the left arm. Didn't try as the patient had seizure-like movements. Patient unable to describe whether it was tonic-clonic. No tongue biting. No loss of consciousness. Patient is alert and oriented 3 during my examination. No diaphoresis no shortness of breath no palpitations. No exacerbating or relieving factors. Patient also has headache. Patient also feels she is dehydrated. Past Medical History Previous Medical History?: Yes Hypertension: Yes (10+ YRS, high cholesterol) Diabetes: Yes ((NIDDM '13)) GERD: Yes Renal Disease: Yes (stage 2) Arthritis: Yes Asthma: Yes Additional medical history: GOUT. HERNIATED ESOPHAGUS. FIBROMYALGIA - Social History Smoking Status: Never Smoker - Medications Home Medications: Home Medications Medication Instructions Recorded Confirmed Last Taken Type Advair Diskus 250-50 mcg 250 mg INHALATION BID 05/30/15 04/26/19 04/26/19 History Aspirin Enteric Coated TAB 81 mg PO DAILY 05/30/15 04/26/19 04/26/19 History AtorvaSTATin 20 mg PO DAILY 05/30/15 04/26/19 04/26/19 History Fluticasone 50 mcg INNOSTRIL DAILY 05/30/15 04/26/19 04/26/19 History Loratadine 10 mg PO DAILY 05/30/15 04/26/19 04/26/19 History Nitro Dur 0.4 mg SL PRN 05/30/15 04/26/19 04/26/19 History Pantoprazole 40 mg PO DAILY 05/30/15 04/26/19 04/26/19 History Prednisone 25 mg PO BID 05/30/15 04/26/19 04/26/19 History ProAir HFA Inhaler 2 puff INHALATION BID 05/30/15 04/26/19 04/26/19 History metFORMIN 750 mg PO QDAY 05/30/15 04/26/19 04/26/19 History Atenolol [Tenormin] 50 mg PO QDAY 11/30/18 04/26/19 04/26/19 History Lisinopril/Hydrochlorothiazide 2 each PO QDAY 11/30/18 04/26/19 04/26/19 History [Zestoretic 10-12.5 mg Tablet] cloNIDine [Catapres] 0.2 mg PO BID #60 tablet 12/02/18 04/26/19 04/26/19 Rx Review of Systems ROS: Stated complaint: N/V/CHEST PAIN Other details as noted in HPI Comment: All other systems reviewed and negative Constitutional: denies: chills, fever Respiratory: denies: cough, shortness of breath, SOB with exertion, SOB at rest Gastrointestinal: denies: abdominal pain, nausea, vomiting, diarrhea, constipation, hematemesis, melena Musculoskeletal: denies: back pain Neurological: headache. denies: weakness, numbness, paresthesias, confusion Psychiatric: denies: anxiety, depression, auditory hallucinations, visual hallucinations, homicidal thoughts 14 point review of systems done and was negative otherwise. Medications and Allergies Allergies Allergy/AdvReac Type Severity Reaction Status Date / Time No Known Allergies Allergy Verified 09/23/15 18:43 Home Medications Medication Instructions Recorded Confirmed Last Taken Type Advair Diskus 250-50 mcg 250 mg INHALATION BID 05/30/15 04/26/19 04/26/19 History Aspirin Enteric Coated TAB 81 mg PO DAILY 05/30/15 04/26/19 04/26/19 History AtorvaSTATin 20 mg PO DAILY 05/30/15 04/26/19 04/26/19 History Fluticasone 50 mcg INNOSTRIL DAILY 05/30/15 04/26/19 04/26/19 History Loratadine 10 mg PO DAILY 05/30/15 04/26/19 04/26/19 History Nitro Dur 0.4 mg SL PRN 05/30/15 04/26/19 04/26/19 History Pantoprazole 40 mg PO DAILY 05/30/15 04/26/19 04/26/19 History Prednisone 25 mg PO BID 05/30/15 04/26/19 04/26/19 History ProAir HFA Inhaler 2 puff INHALATION BID 05/30/15 04/26/19 04/26/19 History metFORMIN 750 mg PO QDAY 05/30/15 04/26/19 04/26/19 History Atenolol [Tenormin] 50 mg PO QDAY 11/30/18 04/26/19 04/26/19 History Lisinopril/Hydrochlorothiazide 2 each PO QDAY 11/30/18 04/26/19 04/26/19 History [Zestoretic 10-12.5 mg Tablet] cloNIDine [Catapres] 0.2 mg PO BID #60 tablet 12/02/18 04/26/19 04/26/19 Rx Active Meds: Active Medications Aspirin (Halfprin Ec) 81 mg PO QDAY [facility] Atenolol (Tenormin) 50 mg PO QDAY [facility] Atorvastatin Calcium (Lipitor) 20 mg PO DAILY [facility] Clonidine HCl (Catapres) 0.2 mg PO BID [facility] Fluticasone Propionate (Flonase) 50 mcg NS QDAY [facility] Hydralazine HCl (Apresoline) 10 mg IV Q3H PRN PRN Reason: Blood Pressure Hydrochlorothiazide (Hctz) 25 mg PO QDAY [facility] Levetiracetam 750 mg/ Dextrose 107.5 mls @ 400 mls/hr IV Q12HR [facility] Lisinopril (Zestril) 20 mg PO QDAY [facility] Loratadine (Claritin) 10 mg PO DAILY [facility] Losartan Potassium (Cozaar) 100 mg PO QDAY [facility] Metformin HCl (Glucophage) 500 mg PO BIDDIAB [facility] Miscellaneous Medication (Advair Diskus 250-50 Mcg) 250 mg INHALATION BID [facility] Miscellaneous Medication (Pantoprazole) 40 mg PO DAILY [facility] Miscellaneous Medication (Proair Hfa Inhaler) 2 puff INHALATION BID [facility] Nitroglycerin (Nitrostat) 0.4 mg SL .Q5MIN PRN PRN Reason: Chest Pain Prednisone (Deltasone) 25 mg PO BID [facility] Exam - Constitutional Vitals: Temp Pulse Resp BP Pulse Ox 90 9 L 138/56 100 04/26/19 22:00 04/26/19 22:00 04/26/19 22:00 04/26/19 22:00 General appearance: Present: no acute distress, well-nourished - EENT Eyes: Present: PERRL ENT: hearing intact, clear oral mucosa - Neck Neck: Present: supple, normal ROM - Respiratory Respiratory effort: normal Respiratory: bilateral: CTA - Cardiovascular Heart rate: 96 Rhythm: regular Heart Sounds: Present: S1 & S2. Absent: rub, click - Extremities Extremities: no ischemia, pulses intact, pulses symmetrical, No edema Peripheral Pulses: within normal limits - Abdominal General gastrointestinal: Present: soft, non-tender, non-distended, normal bowel sounds Female genitourinary: Present: normal - Rectal Rectal Exam: deferred - Integumentary Integumentary: Present: clear, warm, dry - Musculoskeletal Musculoskeletal: gait normal, strength equal bilaterally - Psychiatric Psychiatric: appropriate mood/affect, intact judgment & insight - Neurologic Neurologic: CNII-XII intact, moves all extremities - Allied Health Allied health notes reviewed: nursing, case management Results - Labs CBC & Chem 7: 04/26/19 14:51 04/26/19 14:51 Labs: Laboratory Last Values WBC 5.6 K/mm3 (4.5-11.0) 04/26/19 14:51 RBC 4.30 M/mm3 (3.65-5.03) 04/26/19 14:51 Hgb 12.6 gm/dl (10.1-14.3) 04/26/19 14:51 Hct 38.7 % (30.3-42.9) 04/26/19 14:51 MCV 90 fl (79-97) 04/26/19 14:51 MCH 29 pg (28-32) 04/26/19 14:51 MCHC 33 % (30-34) 04/26/19 14:51 RDW 13.7 % (13.2-15.2) 04/26/19 14:51 Plt Count 241 K/mm3 (140-440) 04/26/19 14:51 Lymph % (Auto) 40.1 % (13.4-35.0) H 04/26/19 14:51 [place] % (Auto) 5.0 % (0.0-7.3) 04/26/19 14:51 Eos % (Auto) 1.1 % (0.0-4.3) 04/26/19 14:51 Baso % (Auto) 0.7 % (0.0-1.8) 04/26/19 14:51 Lymph # 2.2 K/mm3 (1.2-5.4) 04/26/19 14:51 [place] # 0.3 K/mm3 (0.0-0.8) 04/26/19 14:51 Eos # 0.1 K/mm3 (0.0-0.4) 04/26/19 14:51 Baso # 0.0 K/mm3 (0.0-0.1) 04/26/19 14:51 Seg Neutrophils % 53.1 % (40.0-70.0) 04/26/19 14:51 Seg Neutrophils # 3.0 K/mm3 (1.8-7.7) 04/26/19 14:51 Sodium 143 mmol/L (137-145) 04/26/19 14:51 Potassium 3.2 mmol/L (3.6-5.0) L 04/26/19 14:51 Chloride 104.1 mmol/L (98-107) 04/26/19 14:51 Carbon Dioxide 18 mmol/L (22-30) L 04/26/19 14:51 Anion Gap 24 mmol/L 04/26/19 14:51 BUN 11 mg/dL (7-17) 04/26/19 14:51 Creatinine 0.8 mg/dL (0.7-1.2) 04/26/19 14:51 Estimated GFR > 60 ml/min 04/26/19 14:51 BUN/Creatinine Ratio 14 % 04/26/19 14:51 Glucose 307 mg/dL (65-100) H 04/26/19 14:51 POC Glucose 152 (70-105) H 04/26/19 18:38 Calcium 9.0 mg/dL (8.4-10.2) 04/26/19 14:51 Troponin T < 0.010 ng/mL (0.00-0.029) 04/26/19 20:07 Short CBC 04/26/19 Range/Units 14:51 WBC 5.6 (4.5-11.0) K/mm3 Hgb 12.6 (10.1-14.3) gm/dl Hct 38.7 (30.3-42.9) % Plt Count 241 (140-440) K/mm3 BMP 04/26/19 14:51 Sodium 143 Potassium 3.2 L Chloride 104.1 Carbon Dioxide 18 L BUN 11 Creatinine 0.8 Glucose 307 H Calcium 9.0 Cardiac Enzymes 04/26/19 04/26/19 04/26/19 Range/Units 14:51 19: 20:07 Troponin T < 0.010 < 0.010 < 0.010 (0.00-0.029) ng/mL - Imaging and Cardiology EKG: report reviewed (normal sinus rhythm heart rate of 96/m probable left atrial enlargement and left ventricular enlargement. T-wave inversion in V4 V5 and V6. Also lead to ambulate 3.) CT scan - chest: report reviewed (node dissection) Imaging and Cardiology: Abdomen with pelvis CTA IMPRESSION: 1. Hepatic steatosis. 2. Calcified uterine fibroids. 3. No evidence of aortic dissection or other acute abnormality. Assessment and Plan Advance Directives: Yes (full code) VTE prophylaxis?: Chemical Plan of care discussed with patient/family: Yes - Patient Problems (1) Chest pain Current Visit: Yes Status: Acute Qualifiers: Chest pain type: unspecified Qualified Code(s): R07.9 - Chest pain, unspecified Plan to address problem: Chest pain workup Serial troponins Lexiscan in the morning if agreed by cardiology Gerd in differential diagnosis Costochondritis unlikely (2) Hypertensive emergency Current Visit: Yes Status: Acute Plan to address problem: Patient to continue home antihypertensives Added losartan 100 mg once a day Hydralazine 10 mg IV every 3 when necessary Hydralazine given in the emergency room (3) Seizure disorder Current Visit: Yes Status: Acute Plan to address problem: The description does not look like a tonic-clonic seizure Patient started on IV Keppra Neurology consulted May Stop Keppra if neurology agrees about pseudoseizures (4) Asthma Current Visit: Yes Status: Chronic Qualifiers: Asthma severity: mild Plan to address problem: Continue Advair and Proventil when necessary (5) Hyperlipidemia Current Visit: Yes Status: Chronic Qualifiers: Hyperlipidemia type: mixed hyperlipidemia Qualified Code(s): E78.2 - Mixed hyperlipidemia Plan to address problem: Continue atorvastatin 20 mg once a day (6) GERD (gastroesophageal reflux disease) Current Visit: Yes Status: Chronic Plan to address problem: Continue Protonix (7) Type 2 diabetes mellitus Current Visit: Yes Status: Chronic 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
--- NOTE | 2019-04-26 22:35 | Cat Scan Report ---
CT angio chest INDICATION: MAIN: chest pain, rule out aortic [id number]. TECHNIQUE: All CT scans at this location are performed using CT dose reduction for ALARA by means of automated e xposure control. Precontrast localizer images were obtained, followed by axial and 3-dimensional reconstruction images , performed at an independent workstation by the fastener technologist after IV bolus contrast injection. COMPARISON: None available. FINDINGS: CT angiogram The entire thoracic aorta and proximal abdominal aorta is unremarkable. No evidence of dissection. No mediastinal, hilar or axillary adenopathy. No pleural fluid or significant parenchymal disease. No pulmonary emboli. IMPRESSION: 1. No acute abnormality. No evidence of aortic dissection or pulmonary embolus. Signer Name: Horace Staley MD Signed: 04/26/2019 10:31 PM Workstation Name: [id number]
[2019-04-26] MEDS ORDERED: TYLENOL PO PRN (22:38)
[2019-04-26] MEDS ORDERED: SODIUM CHLORIDE FLUSH SYRINGE 10 ML IV PRN (22:38)
[2019-04-26] MEDS ORDERED: DILAUDID IV PRN (22:38)
[2019-04-26] MEDS ORDERED: PERCOCET 5/325 PO PRN (22:38)
[2019-04-26] MEDS ORDERED: ZOFRAN IV PRN (22:38)
[2019-04-26] MEDS ORDERED: K-DUR PO ONE (22:47)
[2019-04-26] MEDS ORDERED: PROVENTIL IH PRN (22:54)
[2019-04-26] MEDS: DELTASONE PO SCH (23:34)
[2019-04-26] MEDS: CATAPRES PO SCH (23:34)
[2019-04-26] MEDS: KEPPRA 750 MG in D5W 100 ML IV SCH (23:35)
[2019-04-27 01:12] LABS: Bilirubin,Urine NEG (Negative); Blood,Urine NEG (Negative); Color,Urine Yellow (Yellow); Protein,Urine <15 mg/dL mg/dL (Negative); Urobilinogen,Urine < 2.0 mg/dL (<2.0)
[2019-04-27 01:15] LABS: Amphetamine Screen,Urine PRESUMPTIVE NEGATIVE; Benzodiazepines Screen,Urine PRESUMPTIVE NEGATIVE; Cannabinoid Screen,Urine PRESUMPTIVE NEGATIVE; Cocaine Screen,Urine PRESUMPTIVE NEGATIVE; Methadone Screen,Urine PRESUMPTIVE NEGATIVE; Opiate Screen,Urine PRESUMPTIVE NEGATIVE
[2019-04-27 06:08] LABS: Basophils % (Auto) 0.5 % (0.0-1.8); Eosinophils % (Auto) 0.1 % (0.0-4.3); Hematocrit 39.9 % (30.3-42.9); Lymphocytes # (Auto) 1.2 K/mm3 (1.2-5.4); Mean Corpuscular HGB Conc 33 % (30-34); Mean Corpuscular Volume 90 fl (79-97); Monocytes # (Auto) 0.4 K/mm3 (0.0-0.8); Monocytes % (Auto) 5.4 % (0.0-7.3); Platelet Count 247 K/mm3 (140-440); Red Blood Count 4.43 M/mm3 (3.65-5.03); Red Cell Distribution Width 13.4 % (13.2-15.2)
[2019-04-27] MEDS ORDERED: LEXISCAN IV ONE ×2 (06:59→07:43)
[2019-04-27 07:35] LABS: Alanine Aminotransferase TNR units/L (7-56)
[2019-04-27 07:36] LABS: Blood Urea Nitrogen TNR mg/dL (7-17)
[2019-04-27 07:37] LABS: BUN/Creatinine Ratio TNR; Calcium TNR mg/dL (8.4-10.2)
[2019-04-27 07:38] LABS: Albumin TNR g/dL (3.9-5); Hemolysis Index TNR
[2019-04-27 08:06] LABS: Alanine Aminotransferase 69 units/L (7-56); Albumin 4.6 g/dL (3.9-5); BUN/Creatinine Ratio 13; Blood Urea Nitrogen 10 mg/dL (7-17); Calcium 9.5 mg/dL (8.4-10.2); Hemolysis Index 15
[2019-04-27] MEDS: PROVENTIL IH SCH ×2 (08:27→19:33)
[2019-04-27] MEDS: BROVANA NEBU IH SCH ×2 (08:27→19:32)
[2019-04-27] MEDS: PULMICORT IH SCH ×2 (08:27→19:32)
[2019-04-27] MEDS ORDERED: HALFPRIN EC PO SCH (10:00)
[2019-04-27] MEDS ORDERED: PROTONIX PO SCH (10:00)
[2019-04-27] MEDS ORDERED: HCTZ PO SCH (10:00)
[2019-04-27] MEDS ORDERED: CLARITIN PO SCH (10:00)
[2019-04-27] MEDS ORDERED: ZESTRIL PO SCH (10:00)
[2019-04-27] MEDS ORDERED: COZAAR PO SCH (10:00)
[2019-04-27] MEDS ORDERED: SODIUM CHLORIDE FLUSH SYRINGE 10 ML IV SCH (10:00)
[2019-04-27] MEDS ORDERED: FLONASE NS SCH (10:00)
[2019-04-27] MEDS ORDERED: TENORMIN PO SCH (10:00)
[2019-04-27] MEDS: DELTASONE PO SCH (10:27)
[2019-04-27] MEDS: HumaLOG SUB-Q SCH ×3 (10:29→18:03)
[2019-04-27] MEDS: GLUCOPHAGE PO SCH ×2 (10:30→18:04)
[2019-04-27] MEDS: CATAPRES PO SCH (10:32)
--- NOTE | 2019-04-27 10:45 | Consultation ---
History of Present Illness Consult date: 04/27/19 Consult reason: chest pain History of present illness: Patient is a 58-year old woman who gives a history of asthma, hypertension, diabetes, gastroparesis who presented with shortness of breath not relieved with at home nebulizer treatment. Patient associates shortness of breath with nausea, vomiting and chest pain. There is no lower extremity edema. Noted hypertensive on presentation, blood pressure of 220/116. In addition, it's reported patient had a seizure while waiting in the emergency room lobby. Patient denies history of seizure disorder. Chest CTA reports no evidence of pulmonary embolism. Cycled troponins are negative. An ECG is sinus rhythm wit LVH of repolarization abnormalities. Patient denies prior cardiac history. She reports a negative stress thallium test done at [facility] 5 months ago. Her latest echocardiogram done at this hospital, reports a normal left ventricular systolic function, ejection fraction 60-65%. Medications and Allergies Allergies Allergy/AdvReac Type Severity Reaction Status Date / Time No Known Allergies Allergy Verified 09/23/15 18:43 Home Medications Medication Instructions Recorded Confirmed Last Taken Type Advair Diskus 250-50 mcg 250 mg INHALATION BID 05/30/15 04/26/19 04/26/19 History Aspirin Enteric Coated TAB 81 mg PO DAILY 05/30/15 04/26/19 04/26/19 History AtorvaSTATin 20 mg PO DAILY 05/30/15 04/26/19 04/26/19 History Fluticasone 50 mcg INNOSTRIL DAILY 05/30/15 04/26/19 04/26/19 History Loratadine 10 mg PO DAILY 05/30/15 04/26/19 04/26/19 History Nitro Dur 0.4 mg SL PRN 05/30/15 04/26/19 04/26/19 History Pantoprazole 40 mg PO DAILY 05/30/15 04/26/19 04/26/19 History Prednisone 25 mg PO BID 05/30/15 04/26/19 04/26/19 History ProAir HFA Inhaler 2 puff INHALATION BID 05/30/15 04/26/19 04/26/19 History metFORMIN 750 mg PO QDAY 05/30/15 04/26/19 04/26/19 History Atenolol [Tenormin] 50 mg PO QDAY 11/30/18 04/26/19 04/26/19 History Lisinopril/Hydrochlorothiazide 2 each PO QDAY 11/30/18 04/26/19 04/26/19 History [Zestoretic 10-12.5 mg Tablet] cloNIDine [Catapres] 0.2 mg PO BID #60 tablet 12/02/18 04/26/19 04/26/19 Rx Active Meds: Active Medications Acetaminophen (Tylenol) 650 mg PO Q4H PRN PRN Reason: Pain MILD(1-3)/Fever >100.5/MUSE Albuterol (Proventil) 2.5 mg IH BIDRT [facility] Last Admin: 04/27/19 08:27 Dose: Not Given Documented by: Albuterol (Proventil) 2.5 mg IH Q4HRT PRN PRN Reason: Shortness Of Breath Arformoterol Tartrate (Brovana Nebu) 15 mcg IH Q12HRT [facility] Last Admin: 04/27/19 08:27 Dose: 15 mcg Documented by: Aspirin (Halfprin Ec) 81 mg PO QDAY [facility] Atenolol (Tenormin) 50 mg PO QDAY [facility] Atorvastatin Calcium (Lipitor) 20 mg PO DAILY [facility] Budesonide (Pulmicort) 0.5 mg IH Q12HRT [facility] Last Admin: 04/27/19 08:27 Dose: 0.5 mg Documented by: Clonidine HCl (Catapres) 0.2 mg PO BID [facility] Last Admin: 04/26/19 23:34 Dose: 0.2 mg Documented by: Fluticasone Propionate (Flonase) 50 mcg NS QDAY [facility] Hydralazine HCl (Apresoline) 10 mg IV Q3H PRN PRN Reason: Blood Pressure Last Admin: 04/27/19 04:50 Dose: 10 mg Documented by: Hydrochlorothiazide (Hctz) 25 mg PO QDAY [facility] Hydromorphone HCl (Dilaudid) 0.5 mg IV Q3H PRN PRN Reason: Pain , Severe (7-10) Last Admin: 04/26/19 23:35 Dose: 0.5 mg Documented by: Levetiracetam 750 mg/ Dextrose 107.5 mls @ 400 mls/hr IV Q12HR [facility] Last Admin: 04/26/19 23:35 Dose: 400 mls/hr Documented by: Insulin Human Lispro (Humalog) 0 unit SUB-Q [facility]; Protocol Lisinopril (Zestril) 20 mg PO QDAY [facility] Loratadine (Claritin) 10 mg PO DAILY [facility] Losartan Potassium (Cozaar) 100 mg PO QDAY [facility] Metformin HCl (Glucophage) 500 mg PO BIDDIAB [facility] Nitroglycerin (Nitrostat) 0.4 mg SL .Q5MIN PRN PRN Reason: Chest Pain Ondansetron HCl (Zofran) 4 mg IV Q8H PRN PRN Reason: Nausea And Vomiting Last Admin: 04/27/19 04:34 Dose: 4 mg Documented by: Oxycodone/Acetaminophen (Percocet 5/325) 1 tab PO Q6H PRN PRN Reason: Pain, Moderate (4-6) Pantoprazole Sodium (Protonix) 40 mg PO DAILY [facility] Prednisone (Deltasone) 25 mg PO BID [facility] Last Admin: 04/26/19 23:34 Dose: 25 mg Documented by: Sodium Chloride (Sodium Chloride Flush Syringe 10 Ml) 10 ml IV BID [facility] Sodium Chloride (Sodium Chloride Flush Syringe 10 Ml) 10 ml IV PRN PRN PRN Reason: LINE FLUSH Physical Examination Vital Signs Resp 19 04/26/19 14:37 General appearance: no acute distress HEENT: Positive: PERRL Neck: Positive: trachea midline Cardiac: Positive: Reg Rate and Rhythm Lungs: Positive: Normal Breath Sounds Neuro: Positive: Grossly Intact Extremities: Absent: edema Results 04/27/19 04:08 04/27/19 Unknown Cardiac Enzymes 04/27/19 04/27/19 Range/Units 04:08 Unknown AST TNR 61 H CBC 04/26/19 04/27/19 Range/Units 14:51 04:08 WBC 5.6 7.6 (4.5-11.0) K/mm3 RBC 4.30 4.43 (3.65-5.03) M/mm3 Hgb 12.6 13.0 (10.1-14.3) gm/dl Hct 38.7 39.9 (30.3-42.9) % Plt Count 241 247 (140-440) K/mm3 Lymph # 2.2 1.2 (1.2-5.4) K/mm3 [place] # 0.3 0.4 (0.0-0.8) K/mm3 Eos # 0.1 0.0 (0.0-0.4) K/mm3 Baso # 0.0 0.0 (0.0-0.1) K/mm3 Comprehensive Metabolic Panel 04/26/19 04/27/19 04/27/19 Range/Units 14:51 04:08 Unknown Sodium 143 TNR 143 (137-145) mmol/L Potassium 3.2 L TNR 3.9 D (3.6-5.0) mmol/L Chloride 104.1 TNR 101.8 (98-107) mmol/L Carbon Dioxide 18 L TNR 18 L (22-30) mmol/L BUN 11 TNR 10 (7-17) mg/dL Creatinine 0.8 TNR 0.8 (0.7-1.2) mg/dL Glucose 307 H TNR 213 H (65-100) mg/dL Calcium 9.0 TNR 9.5 (8.4-10.2) mg/dL AST TNR 61 H ALT TNR 69 H Alkaline Phosphatase TNR 91 Total Protein TNR 8.5 H Albumin TNR 4.6
[2019-04-27] MEDS: KEPPRA 750 MG in D5W 100 ML IV SCH (10:48)
[2019-04-27] MEDS ORDERED: NACL 0.9% 1000 ML 1,000 ML IV SCH (12:00)
--- NOTE | 2019-04-27 14:28 | Progress Note ---
Assessment and Plan - Patient Problems (1) Chest pain Current Visit: Yes Status: Acute Qualifiers: Chest pain type: unspecified Qualified Code(s): R07.9 - Chest pain, unspecified Plan to address problem: The patient has had extensive recent cardiac workup including an echocardiogram 4 months ago, left ventricle ejection fraction was 60-65%. A pharmacologic stress test with myocardial perfusion done just 2 weeks ago as outpatient was reported negative. Lexiscan cancelled because of recent cardiolgy work up done. The patient is a 58-year-old woman with a history of asthma, fibromyalgia, chronic kidney disease, hypertension and diabetes. She will usually receives her care at [facility]. She presented to the emergency room with complaints of shortness of breath which she felt was an "asthma attack". She denies anginal type chest pain, denied palpitations, denied unusual shortness of breath, and denies edema. There is chronic, generalized musculoskeletal pain including thoracic pain attributed to her fibromyalgia. Cardiology consultation was requested for further assessment of "chest pain". While in the emergency room, she was also reported to have suffered a witnessed seizure episode which resolved spontaneously. Patient denies any history of seizure disorder. Workup so far ECG is normal sinus rhythm with left ventricular hypertrophy and nonspecific ST and T-wave changes. Recommendations: Patient presented with symptoms of asthma exacerbation, and a witnessed seizure episode in the emergency room. No further cardiac workup is indicated. We will defer to internal medicine for management of the patient's chronic asthma and witnessed seizure episode. (2) Hypertensive emergency Current Visit: Yes Status: Acute Plan to address problem: Patient to continue home antihypertensives Added losartan 100 mg once a day Hydralazine 10 mg IV every 3 when necessary Hydralazine given in the emergency room (3) Seizure disorder Current Visit: Yes Status: Acute Plan to address problem: The description does not look like a tonic-clonic seizure Patient started on IV Keppra Neurology consulted May Stop Keppra if neurology agrees about pseudoseizures (4) Asthma Current Visit: Yes Status: Chronic Qualifiers: Asthma severity: mild Plan to address problem: Continue Advair and Proventil when necessary (5) Hyperlipidemia Current Visit: Yes Status: Chronic Qualifiers: Hyperlipidemia type: mixed hyperlipidemia Qualified Code(s): E78.2 - Mixed hyperlipidemia Plan to address problem: Continue atorvastatin 20 mg once a day (6) GERD (gastroesophageal reflux disease) Current Visit: Yes Status: Chronic Plan to address problem: Continue Protonix (7) Type 2 diabetes mellitus Current Visit: Yes Status: Chronic Qualifiers: 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 Didn't try as the patient had seizure-like movements. Patient unable to describe whether it was tonic-clonic. No tongue biting. No loss of consciousness. Patient is alert and oriented 3 during my examination. No diaphoresis no shortness of breath no palpitations. No exacerbating or relieving factors. Patient also has headache. Patient also feels she is dehydrated. Feels better. Cardiology consult appreciated Objective - Constitutional Vitals: Vital Signs - 12hr 04/27/19 04/27/19 04/27/19 04:17 07:20 08:27 Temperature 97.2 F L 98.5 F Pulse Rate 84 102 H Pulse Rate [ 102 H Anterior Bilateral Throughout] Respiratory 16 18 Rate Respiratory 16 Rate [Anterior Bilateral Throughout] Blood Pressure 163/92 121/78 O2 Sat by Pulse 100 100 Oximetry 04/27/19 04/27/19 04/27/19 10:31 10:32 10:55 Temperature Pulse Rate 102 H 102 H 102 H Pulse Rate [ Anterior Bilateral Throughout] Respiratory Rate Respiratory Rate [Anterior Bilateral Throughout] Blood Pressure 121/78 121/78 121/78 O2 Sat by Pulse Oximetry 04/27/19 11:17 Temperature 98.3 F Pulse Rate 103 H Pulse Rate [ Anterior Bilateral Throughout] Respiratory 18 Rate Respiratory Rate [Anterior Bilateral Throughout] Blood Pressure 123/78 O2 Sat by Pulse 100 Oximetry General appearance: Present: no acute distress, well-nourished - EENT Eyes: PERRL, EOM intact ENT: hearing intact, clear oral mucosa Ears: bilateral: normal - Neck Neck: supple, normal ROM - Respiratory Respiratory effort: normal Respiratory: bilateral: CTA - Breasts Breasts: normal - Cardiovascular Heart rate: 78 Rhythm: regular Heart Sounds: Present: S1 & S2. Absent: gallop, rub Extremities: no ischemia, pulses intact, No edema, normal color, Full ROM - Gastrointestinal General gastrointestinal: Present: soft, non-tender, non-distended, normal bowel sounds Rectal Exam: deferred - Genitourinary Female genitourinary: normal - Integumentary Integumentary: clear, warm, dry - Musculoskeletal Musculoskeletal: 1, strength equal bilaterally - Neurologic Neurologic: moves all extremities - Psychiatric Psychiatric: memory intact, appropriate mood/affect, intact judgment & insight - Labs CBC & Chem 7: 04/27/19 04:08 04/27/19 Unknown Labs: Abnormal lab results 04/26/19 04/26/19 04/26/19 Range/Units 00:20 14:51 14:51 Lymph % (Auto) 40.1 H (13.4-35.0) % Seg Neutrophils % (40.0-70.0) % Potassium 3.2 L (3.6-5.0) mmol/L Carbon Dioxide 18 L (22-30) mmol/L Glucose 307 H (65-100) mg/dL POC Glucose (70-105) Hemoglobin A1c (4-6) % AST (5-40) units/L ALT (7-56) units/L Total Protein (6.3-8.2) g/dL Urine pH 8.0 H (5.0-7.0) Ur Specific [place] 1.045 H (1.003-1.030) 04/26/19 04/26/19 04/27/19 Range/Units 18:38 23:00 04:08 Lymph % (Auto) (13.4-35.0) % Seg Neutrophils % 78.0 H (40.0-70.0) % Potassium (3.6-5.0) mmol/L Carbon Dioxide (22-30) mmol/L Glucose (65-100) mg/dL POC Glucose 152 H (70-105) Hemoglobin A1c 8.1 H (4-6) % AST (5-40) units/L ALT (7-56) units/L Total Protein (6.3-8.2) g/dL Urine pH (5.0-7.0) Ur Specific [place] (1.003-1.030) 04/27/19 04/27/19 04/27/19 Range/Units 08:30 11:29 Unknown Lymph % (Auto) (13.4-35.0) % Seg Neutrophils % (40.0-70.0) % Potassium (3.6-5.0) mmol/L Carbon Dioxide 18 L (22-30) mmol/L Glucose 213 H (65-100) mg/dL POC Glucose 274 H 327 H (70-105) Hemoglobin A1c (4-6) % AST 61 H (5-40) units/L ALT 69 H (7-56) units/L Total Protein 8.5 H (6.3-8.2) g/dL Urine pH (5.0-7.0) Ur Specific [place] (1.003-1.030)
--- NOTE | 2019-04-27 14:47 | Discharge Summary ---
Providers - Providers Date of Admission: 04/26/19 18:10 Date of discharge: 04/27/19 Attending physician: MARITA BOWLING 04/26/19 22:09 Consult to Physician [CONS] Routine Comment: Consulting Provider: ROBERTA ZAIDI Physician Instructions: Reason For Exam: chest pain 04/26/19 22:42 Consult to Physician [CONS] Routine Comment: Consulting Provider: PARIS OROPEZA Physician Instructions: Reason For Exam: seizure--new onset Hospitalization Condition: Stable Pertinent studies: Abd CT IMPRESSION: 1. Hepatic steatosis. 2. Calcified uterine fibroids. 3. No evidence of aortic dissection or other acute abnormality. Signer Name: Horace Staley MD Chest CT IMPRESSION: 1. No acute abnormality. No evidence of aortic dissection or pulmonary embolus. Signer Name: Horace Staley MD Signed: 04/26/2019 10:31 PM Workstation Name: [id number] Hospital course: 58-year-old female with history of hypertension comes to the emergency room for retrosternal chest pain with radiation to the left arm. Didn't try as the patient had seizure-like movements. Patient unable to describe whether it was tonic-clonic. No tongue biting. No loss of consciousness. Patient is alert and oriented 3 during my examination. No diaphoresis no shortness of breath no palpitations. No exacerbating or relieving factors. Patient also has headache. Patient also feels she is dehydrated. Past Medical History Previous Medical History?: Yes Hypertension: Yes (10+ YRS, high cholesterol) Diabetes: Yes ((NIDDM '13)) GERD: Yes Renal Disease: Yes (stage 2) Arthritis: Yes Asthma: Yes Additional medical history: GOUT. HERNIATED ESOPHAGUS. FIBROMYALGIA - Social History Smoking Status: Never Smoker - Medications Home Medications: Home Medications Medication Instructions Recorded Confirmed Last Taken Type Advair Diskus 250-50 mcg 250 mg INHALATION BID 05/30/15 04/26/19 04/26/19 History Aspirin Enteric Coated TAB 81 mg PO DAILY 05/30/15 04/26/19 04/26/19 History AtorvaSTATin 20 mg PO DAILY 05/30/15 04/26/19 04/26/19 History Fluticasone 50 mcg INNOSTRIL DAILY 05/30/15 04/26/19 04/26/19 History Loratadine 10 mg PO DAILY 05/30/15 04/26/19 04/26/19 History Nitro Dur 0.4 mg SL PRN 05/30/15 04/26/19 04/26/19 History Pantoprazole 40 mg PO DAILY 05/30/15 04/26/19 04/26/19 History Prednisone 25 mg PO BID 05/30/15 04/26/19 04/26/19 History ProAir HFA Inhaler 2 puff INHALATION BID 05/30/15 04/26/19 04/26/19 History metFORMIN 750 mg PO QDAY 05/30/15 04/26/19 04/26/19 History Atenolol [Tenormin] 50 mg PO QDAY 11/30/18 04/26/19 04/26/19 History Lisinopril/Hydrochlorothiazide 2 each PO QDAY 11/30/18 04/26/19 04/26/19 History [Zestoretic 10-12.5 mg Tablet] cloNIDine [Catapres] 0.2 mg PO BID #60 tablet 12/02/18 04/26/19 04/26/19 Rx A/p (1) Chest pain Current Visit: Yes Status: Acute Qualifiers: Chest pain type: unspecified Qualified Code(s): R07.9 - Chest pain, unspecified Plan to address problem: The patient has had extensive recent cardiac workup including an echocardiogram 4 months ago, left ventricle ejection fraction was 60-65%. A pharmacologic stress test with myocardial perfusion done just 2 weeks ago as outpatient was reported negative. Lexiscan cancelled because of recent cardiolgy work up done. The patient is a 58-year-old woman with a history of asthma, fibromyalgia, chronic kidney disease, hypertension and diabetes. She will usually receives her care at [facility]. She presented to the emergency room with complaints of shortness of breath which she felt was an "asthma attack". She denies anginal type chest pain, denied palpitations, denied unusual shortness of breath, and denies edema. There is chronic, generalized musculoskeletal pain including thoracic pain attributed to her fibromyalgia. Cardiology consultation was requested for further assessment of "chest pain". While in the emergency room, she was also reported to have suffered a witnessed seizure episode which resolved spontaneously. Patient denies any history of seizure disorder. Workup so far ECG is normal sinus rhythm with left ventricular hypertrophy and nonspecific ST and T-wave changes. Recommendations: Patient presented with symptoms of asthma exacerbation, and a witnessed seizure episode in the emergency room. No further cardiac workup is indicated. (2) Hypertensive emergency Current Visit: Yes Status: Acute Plan to address problem: Patient to continue home antihypertensives Added losartan 100 mg once a day Hydralazine 10 mg IV every 3 when necessary was given BP under control Hydralazine given in the emergency room (3) Seizure disorder Current Visit: Yes Status: Acute Plan to address problem: The description does not look like a tonic-clonic seizure Patient started on IV Keppra Neurology consult not done Will discahrge on oral Keppra B{ at discharge 123/78 (4) Asthma Current Visit: Yes Status: Chronic Qualifiers: Asthma severity: mild Plan to address problem: Continue Advair and Proventil when necessary (5) Hyperlipidemia Current Visit: Yes Status: Chronic Qualifiers: Hyperlipidemia type: mixed hyperlipidemia Qualified Code(s): E78.2 - Mixed hyperlipidemia Plan to address problem: Continue atorvastatin 20 mg once a day (6) GERD (gastroesophageal reflux disease) Current Visit: Yes Status: Chronic Plan to address problem: Continue Protonix (7) Type 2 diabetes mellitus Current Visit: Yes Status: Chronic Qualifiers: Diabetes mellitus fci insulin use: without fci use Plan to address problem: Check hemoglobin A1c Continue metformin and coverage with moderate dose sliding scale Disposition: DC-01 TO HOME OR SELFCARE Core Measure Documentation - Palliative Care Palliative Care/ Comfort Measures: Not Applicable - Core Measures Any of the following diagnoses?: none Exam - Constitutional Vitals: Temp Pulse Resp BP Pulse Ox 98.3 F 103 H 18 123/78 100 04/27/19 11:17 04/27/19 11:17 04/27/19 11:17 04/27/19 11:17 04/27/19 11:17 General appearance: Present: no acute distress, well-nourished - EENT Eyes: Present: PERRL ENT: hearing intact, clear oral mucosa - Neck Neck: Present: supple, normal ROM - Respiratory Respiratory effort: normal Respiratory: bilateral: CTA - Cardiovascular Heart rate: 78 Rhythm: regular Heart Sounds: Present: S1 & S2. Absent: rub, click - Extremities Extremities: no ischemia, pulses intact, pulses symmetrical, No edema Peripheral Pulses: within normal limits - Abdominal General gastrointestinal: Present: soft, non-tender, non-distended, normal bowel sounds Female genitourinary: Present: normal - Integumentary Integumentary: Present: clear, warm, dry - Musculoskeletal Musculoskeletal: gait normal, strength equal bilaterally - Psychiatric Psychiatric: appropriate mood/affect, intact judgment & insight - Neurologic Neurologic: CNII-XII intact, moves all extremities - Allied Health Allied health notes reviewed: nursing, case management Plan Activity: no restrictions Diet: low cholesterol, low salt, diabetic Follow up with: [facility] [Other] - 3-5 Days Forms: Accompanied Note
[2019-04-27 15:43] VITALS: BP 119/66
--- NOTE | 2019-04-27 18:26 | Consultation ---
History of Present Illness Consult date: 04/27/19 Chief complaint: possible seizure History of present illness: This is a 58 YO F who presented tot he ED for chest pain and SOB. Pt had a witnessed spell in the ED. Not described, unclear if it was true seizure. Never had a seizure before. On my arrival she is at baseline. No recent injury . Past History Past Medical History: diabetes, other (kidney dz, gout, herniations in esophagus) Social history: lives with family Family history: hypertension Medications and Allergies Allergies Allergy/AdvReac Type Severity Reaction Status Date / Time No Known Allergies Allergy Verified 09/23/15 18:43 Home Medications Medication Instructions Recorded Confirmed Last Taken Type Advair Diskus 250-50 mcg 250 mg INHALATION BID 05/30/15 04/26/19 04/26/19 History AtorvaSTATin 20 mg PO DAILY 05/30/15 04/26/19 04/26/19 History Nitro Dur 0.4 mg SL PRN 05/30/15 04/26/19 04/26/19 History Prednisone 25 mg PO BID 05/30/15 04/26/19 04/26/19 History ProAir HFA Inhaler 2 puff INHALATION BID 05/30/15 04/26/19 04/26/19 History metFORMIN 750 mg PO QDAY 05/30/15 04/26/19 04/26/19 History Atenolol [Tenormin] 50 mg PO QDAY 11/30/18 04/26/19 04/26/19 History Lisinopril/Hydrochlorothiazide 2 each PO QDAY 11/30/18 04/26/19 04/26/19 History [Zestoretic 10-12.5 mg Tablet] Arformoterol Nebu [Brovana Nebu] 15 mcg IH Q12HRT ml 04/27/19 Unknown Rx Aspirin EC [Halfprin EC] 81 mg PO QDAY tablet 04/27/19 Unknown Rx Budesonide [Pulmicort Respules] 0.5 mg IH Q12HRT nebu 04/27/19 Unknown Rx Fluticasone [Flonase] 50 mcg NS QDAY bottle 04/27/19 Unknown Rx Glimepiride [Amaryl] 2 mg PO QAM #30 tablet 04/27/19 Unknown Rx HYDROcodone/ACETAMINOPHEN [Vicodin 1 tab PO Q6HR PRN #20 tablet 04/27/19 Unknown Rx HP 10-300 mg TAB] Lispro Insulin [HumaLOG] 0 unit SUB-Q ACHS units 04/27/19 Unknown Rx Loratadine [Claritin] 10 mg PO DAILY tablet 04/27/19 Unknown Rx Losartan [Cozaar] 100 mg PO QDAY tablet 04/27/19 Unknown Rx Pantoprazole [Protonix TAB] 40 mg PO DAILY tablet 04/27/19 Unknown Rx cloNIDine [Catapres] 0.2 mg PO BID tablet 04/27/19 Unknown Rx levETIRAcetam [Keppra TAB] 750 mg PO BID #60 tablet 04/27/19 Unknown Rx oxyCODONE /ACETAMINOPHEN [Percocet 1 tab PO Q6H PRN #20 tablet 04/27/19 Unknown Rx 5/325 mg] Active Meds: Active Medications Acetaminophen (Tylenol) 650 mg PO Q4H PRN PRN Reason: Pain MILD(1-3)/Fever >100.5/MUSE Albuterol (Proventil) 2.5 mg IH BIDRT [facility] Last Admin: 04/27/19 08:27 Dose: Not Given Documented by: Albuterol (Proventil) 2.5 mg IH Q4HRT PRN PRN Reason: Shortness Of Breath Arformoterol Tartrate (Brovana Nebu) 15 mcg IH Q12HRT [facility] Last Admin: 04/27/19 08:27 Dose: 15 mcg Documented by: Aspirin (Halfprin Ec) 81 mg PO QDAY [facility] Last Admin: 04/27/19 10:28 Dose: 81 mg Documented by: Atenolol (Tenormin) 50 mg PO QDAY [facility] Last Admin: 04/27/19 10:55 Dose: 50 mg Documented by: Atorvastatin Calcium (Lipitor) 20 mg PO DAILY [facility] Last Admin: 04/27/19 10:31 Dose: 20 mg Documented by: Budesonide (Pulmicort) 0.5 mg IH Q12HRT [facility] Last Admin: 04/27/19 08:27 Dose: 0.5 mg Documented by: Clonidine HCl (Catapres) 0.2 mg PO BID [facility] Last Admin: 04/27/19 10:32 Dose: 0.2 mg Documented by: Fluticasone Propionate (Flonase) 50 mcg NS QDAY [facility] Last Admin: 04/27/19 10:26 Dose: 50 mcg Documented by: Hydralazine HCl (Apresoline) 10 mg IV Q3H PRN PRN Reason: Blood Pressure Last Admin: 04/27/19 04:50 Dose: 10 mg Documented by: Hydrochlorothiazide (Hctz) 25 mg PO QDAY [facility] Last Admin: 04/27/19 10:31 Dose: 25 mg Documented by: Hydromorphone HCl (Dilaudid) 0.5 mg IV Q3H PRN PRN Reason: Pain , Severe (7-10) Last Admin: 04/26/19 23:35 Dose: 0.5 mg Documented by: Levetiracetam 750 mg/ Dextrose 107.5 mls @ 400 mls/hr IV Q12HR [facility] Last Admin: 04/27/19 10:48 Dose: 400 mls/hr Documented by: Sodium Chloride (Nacl 0.9% 1000 Ml) 1,000 mls @ 75 mls/hr IV DIRECT [facility] Last Admin: 04/27/19 13:34 Dose: 75 mls/hr Documented by: Insulin Human Lispro (Humalog) 0 unit SUB-Q ACHS [facility]; Protocol Last Admin: 04/27/19 18:03 Dose: 6 unit Documented by: Lisinopril (Zestril) 20 mg PO QDAY [facility] Last Admin: 04/27/19 10:31 Dose: 20 mg Documented by: Loratadine (Claritin) 10 mg PO DAILY [facility] Last Admin: 04/27/19 10:28 Dose: 10 mg Documented by: Losartan Potassium (Cozaar) 100 mg PO QDAY [facility] Last Admin: 04/27/19 10:32 Dose: 100 mg Documented by: Metformin HCl (Glucophage) 500 mg PO BIDDIAB [facility] Last Admin: 04/27/19 18:04 Dose: 500 mg Documented by: Nitroglycerin (Nitrostat) 0.4 mg SL .Q5MIN PRN PRN Reason: Chest Pain Ondansetron HCl (Zofran) 4 mg IV Q8H PRN PRN Reason: Nausea And Vomiting Last Admin: 04/27/19 04:34 Dose: 4 mg Documented by: Oxycodone/Acetaminophen (Percocet 5/325) 1 tab PO Q6H PRN PRN Reason: Pain, Moderate (4-6) Pantoprazole Sodium (Protonix) 40 mg PO DAILY [facility] Last Admin: 04/27/19 10:31 Dose: 40 mg Documented by: Prednisone (Deltasone) 25 mg PO BID [facility] Last Admin: 04/27/19 10:27 Dose: 25 mg Documented by: Sodium Chloride (Sodium Chloride Flush Syringe 10 Ml) 10 ml IV BID [facility] Last Admin: 04/27/19 10:40 Dose: 10 ml Documented by: Sodium Chloride (Sodium Chloride Flush Syringe 10 Ml) 10 ml IV PRN PRN PRN Reason: LINE FLUSH Review of Systems Neurological: seizures Physical Examination - Vital Signs Vital Signs: Vital Signs Resp 19 04/26/19 14:37 - EENT EENT: Present: mucous membranes moist - Respiratory Respiratory: Present: lungs clear - Cardiovascular Cardiovascular: Present: regular rate Extremities: Present: no peripheral edema bilatateraly - Gastrointestinal Gastrointestinal: Present: normoactive bowel sounds - Neurologic Cranial nerve examination: PERRL, EOMI, face symmetric, tongue midline Detailed motor examination: grossly full strength in Reflexes: 0: ankle, bicep, knee, tricep - Psychiatric Psychiatric: Present: mood/affect appropriate Results - Laboratory Findings CBC and BMP: 04/27/19 04:08 04/27/19 Unknown Abnormal Lab Findings: Abnormal Labs 04/26/19 04/26/19 04/26/19 00:20 14:51 14:51 Lymph % (Auto) 40.1 H Seg Neutrophils % Potassium 3.2 L Carbon Dioxide 18 L Glucose 307 H POC Glucose Hemoglobin A1c AST ALT Total Protein Urine pH 8.0 H Ur Specific [place] 1.045 H 04/26/19 04/26/19 04/27/19 18:38 23:00 04:08 Lymph % (Auto) Seg Neutrophils % 78.0 H Potassium Carbon Dioxide Glucose POC Glucose 152 H Hemoglobin A1c 8.1 H AST ALT Total Protein Urine pH Ur Specific [place] 04/27/19 04/27/19 04/27/19 08:30 11:29 Unknown Lymph % (Auto) Seg Neutrophils % Potassium Carbon Dioxide 18 L Glucose 213 H POC Glucose 274 H 327 H Hemoglobin A1c AST 61 H ALT 69 H Total Protein 8.5 H Urine pH Ur Specific [place] - Diagnostic Findings Additional findings: head CT WNL Assessment and Plan This is a 58 YO F with possible seizure. Details of the event are not clear. Currently at baseline. Recommend: EEG, MRI Brain- pt has been discharged so these can be done outpatient Follow up with PCP POC discussed with patient at bedside Call with questions.
== END 2019-04-27 20:10 | disposition home or self-care (01) | DRG 101 ==
LOC: ED 14:08 → 4A 18:10
PROVIDERS: ADMIT Internal Medicine; ATTEND Internal Medicine
DX: G40.909 Epilepsy, unspecified, not intractable, without status epilepticus (principal); I16.1 Hypertensive emergency; K21.9 Gastro-esophageal reflux disease without esophagitis; J45.909 Unspecified asthma, uncomplicated; E11.22 Type 2 diabetes mellitus with diabetic chronic kidney disease; I12.9 Hypertensive chronic kidney disease with stage 1 through stage 4 chronic kidney disease, or unspecified chronic kidney disease; N18.2 Chronic kidney disease, stage 2 (mild); M19.90 Unspecified osteoarthritis, unspecified site; M79.7 Fibromyalgia; M10.9 Gout, unspecified; E78.2 Mixed hyperlipidemia; Z79.82 Long term (current) use of aspirin; Z79.899 Other long term (current) drug therapy; Z82.49 Family history of ischemic heart disease and other diseases of the circulatory system
CPT/HCPCS: 36415; 70450; 71275; 74174; 80048; 80053; 80307; 81001; 82962; 83036; 84484; 85025; 93005; 93010; 94640; 96374; G0378; A9270-GY; J0360; J1170; J1815; J1953; J2270; J2405; J2785; J7030; J7040; J7512; Q9967

== ENCOUNTER 2021-10-12 14:34 | Emergency (ER) | payer MEDICARE ==
[2021-10-12 14:41] VITALS: BP 187/112
== END 2021-10-12 18:00 | disposition left against medical advice (07) ==
LOC: ED 14:34
DX: R10.9 Unspecified abdominal pain (principal); Z53.21 Procedure and treatment not carried out due to patient leaving prior to being seen by health care provider